=== PATIENT | male | born 1940 | race Hispanic/Latino ===

== ENCOUNTER 2017-02-12 08:43 | Inpatient (IN) | payer MEDICARE ==
[2017-02-12] MEDS ORDERED: Albuterol-Ipratrop 3 mg / 0.5 (3 ml) UD IH STA (09:30)
[2017-02-12] MEDS: Sodium Chloride 0.9% 1,000 ML IV STA ×2 (09:48→12:33)
--- NOTE | 2017-02-12 09:49 | ED PDOC ---
HPI: Trauma/Fall - HPI Time Seen by Provider: 02/12/17 08:53 Chief Complaint (Nursing): Trauma Chief Complaint (Provider): Left Clavicle and Right Hip injury History Per: Patient History/Exam Limitations: no limitations Onset/Duration Of Symptoms: Hrs Additional Complaint(s): Berny Oro, a 77 year old male, with a past medical history of chronic obstructive pulmonary disease is brought in to the ED my EMS after the patient fell out of bed earlier this morning sustaining injury to his left clavicle and right hip. The patient reports that he hit his head but denies loss of consciousness. He states that he was laying on the floor for 5 hours unable to get get up. Patient is now complaining of pain to the right hip and left clavicle. Past Medical History Reviewed: Historical Data, Nursing Documentation, Vital Signs Vital Signs: Last Vital Signs Temp 98.0 F 02/12/17 08:46 Pulse 130 H 02/12/17 08:46 Resp 22 02/12/17 08:46 BP 140/64 02/12/17 08:46 Pulse Ox 92 L 02/12/17 12:52 - Medical History PMH: COPD, Depression, HTN, Pneumonia, Seizures (temporal lobe seizure) Denies: Chronic Kidney Disease - Surgical History Surgical History: Cholecystectomy - Family History Family History: States: Unknown Family Hx - Home Medications Home Medications: Ambulatory Orders Medication Instructions Recorded Polyethylene Glycol 3350 [Miralax] 17 gm PO DAILY #10 dose 05/06/14 - Allergies Allergies/Adverse Reactions: Allergies Allergy/AdvReac Type Severity Reaction Status Date / Time No Known Allergies Allergy Verified 02/22/14 12:14 Review of Systems ROS Statement: Except As Marked, All Systems Reviewed And Found Negative Musculoskeletal: Positive for: Other (right hip pain). Negative for: Shoulder Pain (left clavicle pain) Physical Exam - Reviewed Nursing Documentation Reviewed: Yes Vital Signs Reviewed: Yes - Physical Exam Appears: Positive for: Non-toxic, No Acute Distress Head Exam: Positive for: ATRAUMATIC, NORMAL INSPECTION, NORMOCEPHALIC Skin: Positive for: Normal Color, Warm, Dry. Negative for: Rash Eye Exam: Positive for: Normal appearance, EOMI, PERRL. Negative for: Nystagmus ENT: Negative for: Normal ENT Inspection (mucous membranes are dry) Neck: Positive for: Normal, Painless ROM, Supple Cardiovascular/Chest: Positive for: Regular Rate, Rhythm, Chest Non Tender. Negative for: Tachycardia Respiratory: Positive for: Rhonchi (ronchi bilaterally). Negative for: Wheezing , Respiratory Distress Gastrointestinal/Abdominal: Positive for: Normal Exam, Bowel Sounds, Soft. Negative for: Tenderness, Guarding Back: Positive for: Normal Inspection. Negative for: L CVA Tenderness, R CVA Tenderness Extremity: Positive for: Normal ROM (pain on movement ), Tenderness (right hip tenderness ), Deformity (no deformity to right hip), Other (clavicle left side with swelling and ecchymosis; right leg contracted.) Neurologic/Psych: Positive for: Alert (x3), Oriented (x3), Gait - Laboratory Results Result Diagrams: 02/12/17 10:45 02/12/17 10:45 - ECG O2 Sat by Pulse Oximetry: 92 (RA) Pulse Ox Interpretation: Normal Medical Decision Making Medical Decision Makin Initial Impression 77 y/o male presenting with fall type injury Initial Plan: * VBG * CT Cervical Spine * CT Head w/o Contrast * EKG * CMP * CPK * CBC * Chest x-ray * Albuterol 3ml INH * NS 1000mls IV 250mls/hr * Blood Culture * Urine Culture * RAD Left Clavicle * RAD Right Hip * Urinalysis * Reevaluation 1039 CT HEAD WITHOUT CONTRAST. HISTORY: r/o bleed FINDINGS: HEMORRHAGE: No intracranial hemorrhage. BRAIN: Diffuse atrophy with prominence of the ventricles and sulci noted. No mass effect or edema. Dense intracranial atherosclerosis. Scattered periventricular and subcortical white matter hypodensities, which are nonspecific, but often seen with chronic microvascular ischemic disease. Please note that MRI with diffusion imaging is more sensitive in the detection of acute ischemic event. VENTRICLES: No hydrocephalus. CALVARIUM: Unremarkable. PARANASAL SINUSES: Unremarkable as visualized. No significant inflammatory changes. MASTOID AIR CELLS: Unremarkable as visualized. No inflammatory changes. OTHER FINDINGS: None. IMPRESSION: Generalized atrophy. Moderate nonspecific white matter changes. 1058 CT cervical spine without IV contrast Indication: Trauma Technique: Axial computed tomography images were obtained of the cervical spine without the use of intravenous contrast. Coronal and sagittal reformatted images were created and reviewed. This CT exam was performed using 1 or more of the falling dose reduction techniques: Automated exposure control, adjustment of the MAA and/or kV according to patient size, and/or use of iterative reconstruction technique. Findings: Osseous demineralization limits evaluation for acute fracture lines. Degenerative changes including intervertebral disc space narrowing and small osteophyte formation. There is no evidence of acute fracture or subluxation of the cervical spine. The prevertebral soft tissues and spinolaminar lines appear intact. The lateral masses are preserved. The dens tip is intact. There is proper alignment of the lateral masses of C1 with the C2 vertebral body. Carotid artery calcifications. Acute displaced comminuted left clavicle fracture deformity with associated soft tissue stranding, hematoma, and soft tissue edema surrounding the fracture and extending into the visualized axilla and neck soft tissues. Soft tissue stranding and hematoma also noted extending into the upper mediastinum. Included portions of the thyroid gland appear unremarkable. Included portions of lung apices demonstrate extensive emphysematous changes. Impression: Acute displaced comminuted left clavicle fracture deformity (proximal clavicle) with associated soft tissue stranding, hematoma, and soft tissue edema surrounding the fracture and extending into the visualized axilla and neck soft tissues. Soft tissue stranding and hematoma also noted extending into the upper mediastinum. No evidence of acute fracture or subluxation of the cervical spine. Osseous demineralization. Degenerative changes. Extensive emphysematous changes. 1100 EKG performed: * Sinus tachycardia - 125 bpm * No ST changes 1109 Clavicle Xray IMPRESSION: No acute findings related to/accounting for the clinical presentation. 11:11 Hip/Pelvis Xray HISTORY: trauma COMPARISON: None TECHNIQUE: Standard protocol for this study/examination. FINDINGS: There are no osseous abnormalities to suggest fracture. The pelvic ring is intact. Preserved femoral-acetabular relationship. Negative study for protrusio , subluxation or dislocation. Degenerative changes: Mild and symmetrical. Incidental finding(s): Aorto bi-iliac stent graft. Air-filled colon and small bowel likely ileus. IMPRESSION: No acute findings related to/accounting for the clinical presentation. Scribe Attestation Documented by Tita Arrieta acting as a scribe for Paul Patricia MD. Provider Attestation All medical record entries made by the Scribe were at my direction and personally dictated by me. I have reviewed the chart and agree that the record accurately reflects my personal performance of the history, physical exam, medical decision making, and the department course for this patient. I have also personally directed, reviewed, and agree with the discharge instructions and disposition. Disposition - Clinical Impression Clinical Impression: COPD exacerbation, Bronchitis, SIRS (systemic inflammatory response syndrome), Clavicle fracture - Patient ED Disposition Is Patient to be Admitted: Yes - Disposition Disposition Time: 12:58 Condition: FAIR Forms: [employer] ([place]ovan) - Pt Status Changed To: Hospital Disposition Of: Inpatient - Admit Certification Admit to Inpatient:: After my assessment, the patient will require hospitalization for at least two midnights. This is because of the severity of symptoms shown, intensity of services needed, and/or the medical risk in this patient being treated as an outpatient. - POA Present On Arrival: None
--- NOTE | 2017-02-12 10:41 | CT ---
PROCEDURE: CT HEAD WITHOUT CONTRAST. HISTORY: r/o bleed COMPARISON: None available. TECHNIQUE: Axial computed tomography images were obtained through the head/brain without intravenous contrast. Radiation dose: Total exam DLP = 1145.60 mGy-cm. This CT exam was performed using one or more of the following dose reduction techniques: Automated exposure control, adjustment of the mA and/or kV according to patient size, and/or use of iterative reconstruction technique. FINDINGS: HEMORRHAGE: No intracranial hemorrhage. BRAIN: Diffuse atrophy with prominence of the ventricles and sulci noted. No mass effect or edema. Dense intracranial atherosclerosis. Scattered periventricular and subcortical white matter hypodensities, which are nonspecific, but often seen with chronic microvascular ischemic disease. Please note that MRI with diffusion imaging is more sensitive in the detection of acute ischemic event. VENTRICLES: No hydrocephalus. CALVARIUM: Unremarkable. PARANASAL SINUSES: Unremarkable as visualized. No significant inflammatory changes. MASTOID AIR CELLS: Unremarkable as visualized. No inflammatory changes. OTHER FINDINGS: None. IMPRESSION: Generalized atrophy. Moderate nonspecific white matter changes.
[2017-02-12 10:47] LABS: VENOUS BLOOD GAS BASE EXCESS 1.9 mmol/L (0.0-2.0); VENOUS BLOOD GAS PCO2 52 mmHg (40-60); VENOUS BLOOD PH 7.35 (7.32-7.43)
[2017-02-12] MEDS ORDERED: Sodium Chloride 0.9% 1,000 ML IV STA (10:49)
--- NOTE | 2017-02-12 10:59 | CT ---
CT cervical spine without IV contrast Indication: Trauma Comparison: None available Technique: Axial computed tomography images were obtained of the cervical spine without the use of intravenous contrast. Coronal and sagittal reformatted images were created and reviewed. This CT exam was performed using 1 or more of the falling dose reduction techniques: Automated exposure control, adjustment of the MAA and/or kV according to patient size, and/or use of iterative reconstruction technique. Radiation dose: Total exam DLP = 604.40 MGy-cm. Findings: Osseous demineralization limits evaluation for acute fracture lines. Degenerative changes including intervertebral disc space narrowing and small osteophyte formation. There is no evidence of acute fracture or subluxation of the cervical spine. The prevertebral soft tissues and spinolaminar lines appear intact. The lateral masses are preserved. The dens tip is intact. There is proper alignment of the lateral masses of C1 with the C2 vertebral body. Carotid artery calcifications. Acute displaced comminuted left clavicle fracture deformity with associated soft tissue stranding, hematoma, and soft tissue edema surrounding the fracture and extending into the visualized axilla and neck soft tissues. Soft tissue stranding and hematoma also noted extending into the upper mediastinum. Included portions of the thyroid gland appear unremarkable. Included portions of lung apices demonstrate extensive emphysematous changes. Impression: Acute displaced comminuted left clavicle fracture deformity (proximal clavicle) with associated soft tissue stranding, hematoma, and soft tissue edema surrounding the fracture and extending into the visualized axilla and neck soft tissues. Soft tissue stranding and hematoma also noted extending into the upper mediastinum. No evidence of acute fracture or subluxation of the cervical spine. Osseous demineralization. Degenerative changes. Extensive emphysematous changes.
[2017-02-12 11:03] LABS: ALB/GLOB RATIO 0.8 (1.0-2.1); ALKALINE PHOSPHATASE 160 U/L (38-126); ALT/SGPT 18 U/L (21-72); AST/SGOT 53 U/L (17-59); BILIRUBIN,TOTAL 2.2 mg/dl (0.2-1.3); BLOOD UREA NITROGEN 13 mg/dl (9-20); CARBON DIOXIDE 23 mmol/L (22-30); CHLORIDE 105 mmol/L (98-107); GFR AFRICAN-AMERICAN > 60; GLUCOSE,RANDOM 133 mg/dL (75-110); SODIUM 143 mmol/l (132-148); TOTAL PROTEIN 9.1 G/DL (6.3-8.2)
[2017-02-12 11:06] LABS: BASO # 0.2 K/uL (0.0-0.2); BASO % 0.7 % (0.0-2.0); HEMATOCRIT 44.9 % (35.0-51.0); LYMPH # 0.4 K/uL (1.0-4.3); LYMPH % 1.8 % (20.0-40.0); MEAN CELL VOLUME 94.9 fl (80.0-94.0); MEAN CORPUSCULAR HEMOGLOBIN 30.8 pg (27.0-31.0); MEAN CORPUSCULAR HGB CONC 32.5 g/dL (33.0-37.0); MEAN PLATELET VOLUME 8.2 fl (7.2-11.7); MONO # 1.4 K/uL (0.0-0.8); MONO % 6.3 % (0.0-10.0); NEUT # 19.8 K/uL (1.8-7.0); NEUT % 91.2 % (50.0-75.0); NRBC % 0.1 % (0.0-0.0); PLATELET COUNT 147 K/uL (130-400); RED CELL DISTRIBUTION WIDTH 15.2 % (11.5-14.5); WHITE BLOOD COUNT 21.8 K/uL (4.8-10.8)
[2017-02-12 11:07] LABS: POTASSIUM 5.7 MMOL/L (3.6-5.0)
--- NOTE | 2017-02-12 11:11 | RAD ---
HISTORY: cough COMPARISON: 02/22/2014 FINDINGS: LUNGS: No active pulmonary disease. PLEURA: No significant pleural effusion identified, no pneumothorax apparent. CARDIOVASCULAR: No radiographic findings to suggest acute or significant cardiovascular disease. OSSEOUS STRUCTURES: No significant abnormalities. VISUALIZED UPPER ABDOMEN: Normal. OTHER FINDINGS: None. IMPRESSION: No active disease. No significant interval change compared to the prior examination(s).
--- NOTE | 2017-02-12 11:11 | RAD ---
PROCEDURE: Radiographs of the left clavicle. HISTORY: Trauma, left shoulder injury COMPARISON: None. FINDINGS: LEFT CLAVICLE: No fracture or focal lesion. JOINTS: Left acromioclavicular and glenohumeral joints are grossly unremarkable. SOFT TISSUES: Grossly unremarkable. OTHER FINDINGS: None. IMPRESSION: No acute findings related to/accounting for the clinical presentation. Please note: No preliminary report/ innterpretation of this examination provided by emergency department personnel.
--- NOTE | 2017-02-12 11:12 | RAD ---
PROCEDURE: Right hip/ pelvis HISTORY: trauma COMPARISON: None TECHNIQUE: Standard protocol for this study/examination. FINDINGS: There are no osseous abnormalities to suggest fracture. The pelvic ring is intact. Preserved femoral-acetabular relationship. Negative study for protrusio, subluxation or dislocation. Degenerative changes: Mild and symmetrical. Incidental finding(s): Aorto bi-iliac stent graft. Air-filled colon and small bowel likely ileus. IMPRESSION: No acute findings related to/accounting for the clinical presentation. Please note: No preliminary report/ innterpretation of this examination provided by emergency department personnel.
[2017-02-12] MEDS ORDERED: Piperacillin/Tazobact 3.375 GM in Sodium Chloride 0.9% 100 ML IVPB STA (11:52)
[2017-02-12] MEDS ORDERED: Vancomycin 1 g Inj ONE (12:28)
[2017-02-12 12:35] LABS: RBC URINE 1 /hpf (0-3); URINE BILIRUBIN NEGATIVE (NEGATIVE); URINE BLOOD NEGATIVE (NEGATIVE); URINE COLOR AMBER (YELLOW); URINE GLUCOSE (UA) NEG (Normal); URINE KETONE NEGATIVE (NEGATIVE); URINE LEUKOCYTE ESTERASE NEG Leu/uL (Negative); URINE PROTEIN 100 mg/dL (NEGATIVE); WBC URINE < 1 /hpf (0-5)
[2017-02-12 13:23] LABS: VENOUS BLOOD GAS BASE EXCESS 0.4 mmol/L (0.0-2.0); VENOUS BLOOD GAS PCO2 50 mmHg (40-60); VENOUS BLOOD PH 7.34 (7.32-7.43)
[2017-02-12 13:41] LABS: ALB/GLOB RATIO 0.7 (1.0-2.1); ALKALINE PHOSPHATASE 121 U/L (38-126); ALT/SGPT 25 U/L (21-72); AST/SGOT 28 U/L (17-59); BILIRUBIN,TOTAL 1.4 mg/dl (0.2-1.3); BLOOD UREA NITROGEN 13 mg/dl (9-20); CALCIUM 8.3 mg/dL (8.4-10.2); CARBON DIOXIDE 23 mmol/L (22-30); CHLORIDE 109 mmol/L (98-107); GFR AFRICAN-AMERICAN > 60; GLUCOSE,RANDOM 125 mg/dL (75-110); POTASSIUM 4.3 MMOL/L (3.6-5.0); SODIUM 144 mmol/l (132-148); TOTAL PROTEIN 7.5 G/DL (6.3-8.2)
[2017-02-12 14:20] LABS: NEUTROPHIL 82 % (42-75); TOTAL CELLS COUNTED 100
[2017-02-12] MEDS ORDERED: Piperacillin/Tazobact 3.375 gm Inj IVPB ONE (14:46)
[2017-02-12] MEDS: Sodium Chloride 0.9% 1,000 ML IV SCH (18:27)
[2017-02-12] MEDS ORDERED: Albuterol-Ipratrop 3 mg / 0.5 (3 ml) UD INH PRN (21:31)
[2017-02-13] MEDS ORDERED: Influenza Vaccine 18yr & older 0.5 ML/45 MCG SYR IM ONE (05:11)
[2017-02-13] MEDS: Sodium Chloride 0.9% 1,000 ML IV SCH ×2 (06:16→17:22)
[2017-02-13 07:37] LABS: ALB/GLOB RATIO 0.7 (1.0-2.1); ALKALINE PHOSPHATASE 103 U/L (38-126); ALT/SGPT 27 U/L (21-72); AST/SGOT 28 U/L (17-59); BILIRUBIN,TOTAL 1.5 mg/dl (0.2-1.3); BLOOD UREA NITROGEN 16 mg/dl (9-20); CALCIUM 7.9 mg/dL (8.4-10.2); CARBON DIOXIDE 25 mmol/L (22-30); CHLORIDE 111 mmol/L (98-107); GFR AFRICAN-AMERICAN > 60; GLUCOSE,RANDOM 96 mg/dL (75-110); POTASSIUM 4.1 MMOL/L (3.6-5.0); SODIUM 144 mmol/l (132-148); TOTAL PROTEIN 6.8 G/DL (6.3-8.2)
[2017-02-13 08:35] LABS: HEMATOCRIT 36.7 % (35.0-51.0); MEAN CELL VOLUME 95.5 fl (80.0-94.0); MEAN CORPUSCULAR HEMOGLOBIN 31.3 pg (27.0-31.0); MEAN CORPUSCULAR HGB CONC 32.8 g/dL (33.0-37.0); RED CELL DISTRIBUTION WIDTH 14.7 % (11.5-14.5)
[2017-02-13 08:39] LABS: WHITE BLOOD COUNT 9.2 K/uL (4.8-10.8)
[2017-02-13] MEDS: Enoxaparin 40 mg Syringe SC SCH (09:14)
--- NOTE | 2017-02-13 11:00 | CP.PCM.HP ---
Past Patient History - Past Medical History & Family History Past Medical History?: Yes - Past Social History Smoking Status: Light Smoker < 10 Cigarettes Daily - CARDIAC Hx Hypertension: Yes - PULMONARY Hx Respiratory Disorders: Yes Hx Chronic Obstructive Pulmonary Disease (COPD): Yes Hx Pneumonia: Yes - NEUROLOGICAL Hx Neurological Disorder: Yes Hx Seizures: Yes - HEENT Hx HEENT Problems: No - RENAL Hx Chronic Kidney Disease: No - ENDOCRINE/METABOLIC Hx Endocrine Disorders: No - HEMATOLOGICAL/ONCOLOGICAL Hx Blood Disorders: No Hx AIDS: No Hx Human Immunodeficiency Virus (HIV): No - INTEGUMENTARY Hx Dermatological Problems: Yes Other/Comment: plaque scaly violacious lesion 6 x 4 cm over the left upper quadrant present since 7 yrs ago and progressively expanding - MUSCULOSKELETAL/RHEUMATOLOGICAL Hx Musculoskeletal Disorders: Yes Hx Falls: Yes - GASTROINTESTINAL Hx Gastrointestinal Disorders: No Other/Comment: increasing abdominal girth the past few yrs - GENITOURINARY/GYNECOLOGICAL Hx Genitourinary Disorders: No - PSYCHIATRIC Hx Depression: Yes Hx Substance Use: No - SURGICAL HISTORY Hx Cholecystectomy: Yes - ANESTHESIA Hx Anesthesia: Yes Hx Anesthesia Reactions: No Hx Malignant Hyperthermia: No Has any member of the family had a problem w/ anesthesia?: No Meds Allergies/Adverse Reactions: Allergies Allergy/AdvReac Type Severity Reaction Status Date / Time No Known Allergies Allergy Verified 02/22/14 12:14 Results - Vital Signs Recent Vital Signs: Last Vital Signs Temp 98.4 F 02/13/17 08:00 Pulse 65 02/13/17 08:00 Resp 18 02/13/17 08:00 BP 108/66 02/13/17 08:00 Pulse Ox 95 02/13/17 08:00 - Labs Result Diagrams: 02/13/17 08:00 02/13/17 06:00 Labs: Laboratory Results - last 24 hr 02/12/17 02/12/17 02/12/17 09:44 10:45 10:45 WBC 21.8 H RBC 4.73 Hgb 14.6 Hct 44.9 MCV 94.9 H MCH 30.8 MCHC 32.5 L RDW 15.2 H Plt Count 147 MPV 8.2 Neut % (Auto) 91.2 H Lymph % (Auto) 1.8 L [place] % (Auto) 6.3 Eos % (Auto) 0.0 Baso % (Auto) 0.7 Neut # 19.8 H Lymph # 0.4 L [place] # 1.4 H Eos # 0.0 Baso # 0.2 Neutrophils % (Manual) 82 H Band Neutrophils % 5 H Lymphocytes % (Manual) 3 L Monocytes % (Manual) 10 Toxic Granulation Present Platelet Estimate Normal Poikilocytosis (manual Slight Anisocytosis (manual) Moderate Tear Drop Cells Slight pO2 VBG pH VBG pCO2 VBG HCO3 VBG Total CO2 VBG O2 Sat (Calc) VBG Base Excess VBG Potassium Glucose Lactate FiO2 Sodium 143 Potassium 5.7 H Chloride 105 Carbon Dioxide 23 Anion Gap 21 H BUN 13 Creatinine 0.9 Est GFR ( Amer) > 60 Est GFR (Non-Af Amer) > 60 Random Glucose 133 H Calcium 9.0 Total Bilirubin 2.2 H AST 53 ALT 18 L D Alkaline Phosphatase 160 H Total Creatine Kinase 109 Troponin I Total Protein 9.1 H Albumin 4.0 Globulin 5.1 H Albumin/Globulin Ratio 0.8 L Venous Blood Potassium Urine Color [place] Urine Clarity Slighty-cloudy Urine pH 5.0 Ur Specific [place] 1.028 Urine Protein 100 Urine Glucose (UA) Neg Urine Ketones Negative Urine Blood Negative Urine Nitrate Negative Urine Bilirubin Negative Urine Urobilinogen 4.0 Ur Leukocyte Esterase Neg Urine RBC (Auto) 1 Urine Microscopic WBC < 1 Ur Squamous Epith Cells 1 Hyaline Casts 0-2 02/12/17 02/12/17 02/13/17 13:16 13:30 05:15 WBC RBC Hgb Hct MCV MCH MCHC RDW Plt Count MPV Neut % (Auto) Lymph % (Auto) [place] % (Auto) Eos % (Auto) Baso % (Auto) Neut # Lymph # [place] # Eos # Baso # Neutrophils % (Manual) Band Neutrophils % Lymphocytes % (Manual) Monocytes % (Manual) Toxic Granulation Platelet Estimate Poikilocytosis (manual Anisocytosis (manual) Tear Drop Cells pO2 39 VBG pH 7.34 VBG pCO2 50 VBG HCO3 24.5 VBG Total CO2 28.5 H VBG O2 Sat (Calc) 79.4 H VBG Base Excess 0.4 VBG Potassium 4.4 Glucose 139 H Lactate 2.7 H FiO2 21.0 Sodium 144 138.0 Potassium 4.3 Chloride 109 H 108.0 H Carbon Dioxide 23 Anion Gap 16 BUN 13 Creatinine 0.9 Est GFR ( Amer) > 60 Est GFR (Non-Af Amer) > 60 Random Glucose 125 H Calcium 8.3 L Total Bilirubin 1.4 H AST 28 ALT 25 Alkaline Phosphatase 121 Total Creatine Kinase Troponin I 0.0170 Total Protein 7.5 Albumin 3.1 L D Globulin 4.3 H Albumin/Globulin Ratio 0.7 L Venous Blood Potassium 4.4 Urine Color Urine Clarity Urine pH Ur Specific [place] Urine Protein Urine Glucose (UA) Urine Ketones Urine Blood Urine Nitrate Urine Bilirubin Urine Urobilinogen Ur Leukocyte Esterase Urine RBC (Auto) Urine Microscopic WBC Ur Squamous Epith Cells Hyaline Casts 02/13/17 02/13/17 06:00 08:00 WBC 9.2 D RBC 3.84 L Hgb 12.0 D Hct 36.7 MCV 95.5 H MCH 31.3 H MCHC 32.8 L RDW 14.7 H Plt Count 78 L D MPV Neut % (Auto) Lymph % (Auto) [place] % (Auto) Eos % (Auto) Baso % (Auto) Neut # Lymph # [place] # Eos # Baso # Neutrophils % (Manual) Band Neutrophils % Lymphocytes % (Manual) Monocytes % (Manual) Toxic Granulation Platelet Estimate Poikilocytosis (manual Anisocytosis (manual) Tear Drop Cells pO2 VBG pH VBG pCO2 VBG HCO3 VBG Total CO2 VBG O2 Sat (Calc) VBG Base Excess VBG Potassium Glucose Lactate FiO2 Sodium 144 Potassium 4.1 Chloride 111 H Carbon Dioxide 25 Anion Gap 12 BUN 16 Creatinine 0.8 Est GFR ( Amer) > 60 Est GFR (Non-Af Amer) > 60 Random Glucose 96 Calcium 7.9 L Total Bilirubin 1.5 H AST 28 ALT 27 Alkaline Phosphatase 103 Total Creatine Kinase Troponin I Total Protein 6.8 Albumin 2.7 L Globulin 4.1 H Albumin/Globulin Ratio 0.7 L Venous Blood Potassium Urine Color Urine Clarity Urine pH Ur Specific [place] Urine Protein Urine Glucose (UA) Urine Ketones Urine Blood Urine Nitrate Urine Bilirubin Urine Urobilinogen Ur Leukocyte Esterase Urine RBC (Auto) Urine Microscopic WBC Ur Squamous Epith Cells Hyaline Casts
--- NOTE | 2017-02-13 12:20 | CP.PCM.CON ---
History of Present Illness - History of Present Illness History of Present Illness: ID 77 yo male CC: L shoilder pain and rstricted ROM HPI 77 yo male presents after fall admoitted R/O L clavicle fx multiple trauma Past Patient History - Past Medical History & Family History Past Medical History?: Yes - Past Social History Smoking Status: Light Smoker < 10 Cigarettes Daily - CARDIAC Hx Hypertension: Yes - PULMONARY Hx Respiratory Disorders: Yes Hx Chronic Obstructive Pulmonary Disease (COPD): Yes Hx Pneumonia: Yes - NEUROLOGICAL Hx Neurological Disorder: Yes Hx Seizures: Yes - HEENT Hx HEENT Problems: No - RENAL Hx Chronic Kidney Disease: No - ENDOCRINE/METABOLIC Hx Endocrine Disorders: No - HEMATOLOGICAL/ONCOLOGICAL Hx Blood Disorders: No Hx AIDS: No Hx Human Immunodeficiency Virus (HIV): No - INTEGUMENTARY Hx Dermatological Problems: Yes Other/Comment: plaque scaly violacious lesion 6 x 4 cm over the left upper quadrant present since 7 yrs ago and progressively expanding - MUSCULOSKELETAL/RHEUMATOLOGICAL Hx Musculoskeletal Disorders: Yes Hx Falls: Yes - GASTROINTESTINAL Hx Gastrointestinal Disorders: No Other/Comment: increasing abdominal girth the past few yrs - GENITOURINARY/GYNECOLOGICAL Hx Genitourinary Disorders: No - PSYCHIATRIC Hx Depression: Yes Hx Substance Use: No - SURGICAL HISTORY Hx Cholecystectomy: Yes - ANESTHESIA Hx Anesthesia: Yes Hx Anesthesia Reactions: No Hx Malignant Hyperthermia: No Has any member of the family had a problem w/ anesthesia?: No Meds Allergies/Adverse Reactions: Allergies Allergy/AdvReac Type Severity Reaction Status Date / Time No Known Allergies Allergy Verified 02/22/14 12:14 - Medications Medications: Current Medications Acetaminophen (Tylenol 325mg Tab) 650 mg PO Q6 PRN PRN Reason: Pain, Mild (1-3) Albuterol/Ipratropium (Duoneb 3 Mg/0.5 Mg (3 Ml) Ud) 3 ml INH RQ6 PRN PRN Reason: Shortness of Breath Enoxaparin Sodium (Lovenox) 40 mg SC DAILY ERIKA PRN Reason: Protocol Last Admin: 02/13/17 09:14 Dose: 40 mg Sodium Chloride (Sodium Chloride 0.9%) 1,000 mls @ 100 mls/hr IV .Q10H ERIKA Stop: 02/13/17 17:58 Last Admin: 02/13/17 06:16 Dose: 100 mls/hr Ketorolac Tromethamine (Toradol) 15 mg IVP Q6 PRN PRN Reason: Pain, moderate (4-7) Morphine Sulfate (Morphine) 1 mg IVP Q4 PRN PRN Reason: Pain, severe (8-10) Last Admin: 02/13/17 11:09 Dose: 1 mg Physical Exam - Additional Findings Additional findings: Musculoskekltal stance.gait- defrred ROM L shoulder L restricted no resl tenderness at distal clavicle Results - Vital Signs Recent Vital Signs: Last Vital Signs Temp 98.4 F 02/13/17 08:00 Pulse 76 02/13/17 09:00 Resp 18 02/13/17 08:00 BP 108/66 02/13/17 08:00 Pulse Ox 95 02/13/17 08:00 - Labs Result Diagrams: 02/13/17 08:00 02/13/17 06:00 Labs: Laboratory Results - last 24 hr 02/12/17 02/12/17 02/12/17 09:44 10:45 13:16 WBC RBC Hgb Hct MCV MCH MCHC RDW Plt Count Neutrophils % (Manual) 82 H Band Neutrophils % 5 H Lymphocytes % (Manual) 3 L Monocytes % (Manual) 10 Toxic Granulation Present Platelet Estimate Normal Poikilocytosis (manual Slight Anisocytosis (manual) Moderate Tear Drop Cells Slight pO2 VBG pH VBG pCO2 VBG HCO3 VBG Total CO2 VBG O2 Sat (Calc) VBG Base Excess VBG Potassium Glucose Lactate FiO2 Sodium 144 Potassium 4.3 Chloride 109 H Carbon Dioxide 23 Anion Gap 16 BUN 13 Creatinine 0.9 Est GFR ( Amer) > 60 Est GFR (Non-Af Amer) > 60 Random Glucose 125 H Calcium 8.3 L Total Bilirubin 1.4 H AST 28 ALT 25 Alkaline Phosphatase 121 Troponin I Total Protein 7.5 Albumin 3.1 L D Globulin 4.3 H Albumin/Globulin Ratio 0.7 L Venous Blood Potassium Urine Color [place] Urine Clarity Slighty-cloudy Urine pH 5.0 Ur Specific [place] 1.028 Urine Protein 100 Urine Glucose (UA) Neg Urine Ketones Negative Urine Blood Negative Urine Nitrate Negative Urine Bilirubin Negative Urine Urobilinogen 4.0 Ur Leukocyte Esterase Neg Urine RBC (Auto) 1 Urine Microscopic WBC < 1 Ur Squamous Epith Cells 1 Hyaline Casts 0-2 02/12/17 02/13/17 02/13/17 13:30 05:15 06:00 WBC RBC Hgb Hct MCV MCH MCHC RDW Plt Count Neutrophils % (Manual) Band Neutrophils % Lymphocytes % (Manual) Monocytes % (Manual) Toxic Granulation Platelet Estimate Poikilocytosis (manual Anisocytosis (manual) Tear Drop Cells pO2 39 VBG pH 7.34 VBG pCO2 50 VBG HCO3 24.5 VBG Total CO2 28.5 H VBG O2 Sat (Calc) 79.4 H VBG Base Excess 0.4 VBG Potassium 4.4 Glucose 139 H Lactate 2.7 H FiO2 21.0 Sodium 138.0 144 Potassium 4.1 Chloride 108.0 H 111 H Carbon Dioxide 25 Anion Gap 12 BUN 16 Creatinine 0.8 Est GFR ( Amer) > 60 Est GFR (Non-Af Amer) > 60 Random Glucose 96 Calcium 7.9 L Total Bilirubin 1.5 H AST 28 ALT 27 Alkaline Phosphatase 103 Troponin I 0.0170 Total Protein 6.8 Albumin 2.7 L Globulin 4.1 H Albumin/Globulin Ratio 0.7 L Venous Blood Potassium 4.4 Urine Color Urine Clarity Urine pH Ur Specific [place] Urine Protein Urine Glucose (UA) Urine Ketones Urine Blood Urine Nitrate Urine Bilirubin Urine Urobilinogen Ur Leukocyte Esterase Urine RBC (Auto) Urine Microscopic WBC Ur Squamous Epith Cells Hyaline Casts 02/13/17 08:00 WBC 9.2 D RBC 3.84 L Hgb 12.0 D Hct 36.7 MCV 95.5 H MCH 31.3 H MCHC 32.8 L RDW 14.7 H Plt Count 78 L D Neutrophils % (Manual) Band Neutrophils % Lymphocytes % (Manual) Monocytes % (Manual) Toxic Granulation Platelet Estimate Poikilocytosis (manual Anisocytosis (manual) Tear Drop Cells pO2 VBG pH VBG pCO2 VBG HCO3 VBG Total CO2 VBG O2 Sat (Calc) VBG Base Excess VBG Potassium Glucose Lactate FiO2 Sodium Potassium Chloride Carbon Dioxide Anion Gap BUN Creatinine Est GFR ( Amer) Est GFR (Non-Af Amer) Random Glucose Calcium Total Bilirubin AST ALT Alkaline Phosphatase Troponin I Total Protein Albumin Globulin Albumin/Globulin Ratio Venous Blood Potassium Urine Color Urine Clarity Urine pH Ur Specific [place] Urine Protein Urine Glucose (UA) Urine Ketones Urine Blood Urine Nitrate Urine Bilirubin Urine Urobilinogen Ur Leukocyte Esterase Urine RBC (Auto) Urine Microscopic WBC Ur Squamous Epith Cells Hyaline Casts - Impressions Impression: Xray- l shoiulder reveals DJD njo evidence for clavicle fx Assessment & Plan - Assessment and Plan (Free Text) Assessment: A- contusion L shoiulder multiple trauma P sling recommend MRI L shoulder
--- NOTE | 2017-02-13 19:56 | CARD ---
APPROVED REPORT EKG Measurement Heart [id number] IL [id number] [id number] <Conclusion> Sinus tachycardia Otherwise normal ECG
--- NOTE | 2017-02-13 22:37 | CP.PCM.HP ---
History of Present Illness - History of Present Illness History of Present Illness: a 77 year old male, with a past medical history of chronic obstructive pulmonary disease is brought in to the ED my EMS after the patient fell out of bed earlier this morning sustaining injury to his left clavicle and right hip. The patient reports that he hit his head but denies loss of consciousness. He states that he was laying on the floor for 5 hours unable to get get up. Patient is now complaining of pain to the right hip and left clavicle. Past Patient History - Past Medical History & Family History Past Medical History?: Yes - Past Social History Smoking Status: Light Smoker < 10 Cigarettes Daily - CARDIAC Hx Hypertension: Yes - PULMONARY Hx Respiratory Disorders: Yes Hx Chronic Obstructive Pulmonary Disease (COPD): Yes Hx Pneumonia: Yes - NEUROLOGICAL Hx Neurological Disorder: Yes Hx Seizures: Yes - HEENT Hx HEENT Problems: No - RENAL Hx Chronic Kidney Disease: No - ENDOCRINE/METABOLIC Hx Endocrine Disorders: No - HEMATOLOGICAL/ONCOLOGICAL Hx Blood Disorders: No Hx AIDS: No Hx Human Immunodeficiency Virus (HIV): No - INTEGUMENTARY Hx Dermatological Problems: Yes Other/Comment: plaque scaly violacious lesion 6 x 4 cm over the left upper quadrant present since 7 yrs ago and progressively expanding - MUSCULOSKELETAL/RHEUMATOLOGICAL Hx Musculoskeletal Disorders: Yes Hx Falls: Yes - GASTROINTESTINAL Hx Gastrointestinal Disorders: No Other/Comment: increasing abdominal girth the past few yrs - GENITOURINARY/GYNECOLOGICAL Hx Genitourinary Disorders: No - PSYCHIATRIC Hx Depression: Yes Hx Substance Use: No - SURGICAL HISTORY Hx Cholecystectomy: Yes - ANESTHESIA Hx Anesthesia: Yes Hx Anesthesia Reactions: No Hx Malignant Hyperthermia: No Has any member of the family had a problem w/ anesthesia?: No Meds Allergies/Adverse Reactions: Allergies Allergy/AdvReac Type Severity Reaction Status Date / Time No Known Allergies Allergy Verified 02/22/14 12:14 Results - Vital Signs Recent Vital Signs: Last Vital Signs Temp 97.7 F 02/13/17 19:00 Pulse 80 02/13/17 19:00 Resp 18 02/13/17 19:00 BP 147/78 02/13/17 19:00 Pulse Ox 95 02/13/17 19:00 - Labs Result Diagrams: 02/13/17 08:00 02/13/17 06:00 Labs: Laboratory Results - last 24 hr 02/13/17 02/13/17 02/13/17 05:15 06:00 08:00 WBC 9.2 D RBC 3.84 L Hgb 12.0 D Hct 36.7 MCV 95.5 H MCH 31.3 H MCHC 32.8 L RDW 14.7 H Plt Count 78 L D Sodium 144 Potassium 4.1 Chloride 111 H Carbon Dioxide 25 Anion Gap 12 BUN 16 Creatinine 0.8 Est GFR ( Amer) > 60 Est GFR (Non-Af Amer) > 60 Random Glucose 96 Calcium 7.9 L Total Bilirubin 1.5 H AST 28 ALT 27 Alkaline Phosphatase 103 Troponin I 0.0170 Total Protein 6.8 Albumin 2.7 L Globulin 4.1 H Albumin/Globulin Ratio 0.7 L 02/13/17 20:00 WBC RBC Hgb Hct MCV MCH MCHC RDW Plt Count Sodium Potassium Chloride Carbon Dioxide Anion Gap BUN Creatinine Est GFR ( Amer) Est GFR (Non-Af Amer) Random Glucose Calcium Total Bilirubin AST ALT Alkaline Phosphatase Troponin I < 0.0120 Total Protein Albumin Globulin Albumin/Globulin Ratio
--- NOTE | 2017-02-14 08:15 | CP.PCM.PN ---
Subjective - Date & Time of Evaluation Date of Evaluation: 02/14/17 Time of Evaluation: 08:00 - Subjective Subjective: Patient complains of pain at medial clavicle. Also complains of pain in his right knee. He says his knee gave way when he fell. Denies numbness/tingling. Says he does have chronic right knee pain. Objective - Vital Signs/Intake and Output Vital Signs (last 24 hours): Temp Pulse Resp BP Pulse Ox 97.5 F L 77 18 132/73 94 L 02/14/17 04:54 02/14/17 04:54 02/14/17 04:54 02/14/17 04:54 02/14/17 04:54 - Medications Medications: Current Medications Acetaminophen (Tylenol 325mg Tab) 650 mg PO Q6 PRN PRN Reason: Pain, Mild (1-3) Albuterol/Ipratropium (Duoneb 3 Mg/0.5 Mg (3 Ml) Ud) 3 ml INH RQ6 PRN PRN Reason: Shortness of Breath Enoxaparin Sodium (Lovenox) 40 mg SC DAILY ERIKA PRN Reason: Protocol Last Admin: 02/13/17 09:14 Dose: 40 mg Ketorolac Tromethamine (Toradol) 15 mg IVP Q6 PRN PRN Reason: Pain, moderate (4-7) Last Admin: 02/14/17 06:50 Dose: 15 mg Morphine Sulfate (Morphine) 1 mg IVP Q4 PRN PRN Reason: Pain, severe (8-10) Last Admin: 02/13/17 11:09 Dose: 1 mg - Labs Labs: 02/13/17 08:00 02/13/17 06:00 - Constitutional Appears: Well, No Acute Distress - Extremities Exam Additional comments: Left clavicle: noted ecchymosis over medial clavicle. TTP to same. Sling intact. +Radial pulse, sensation intact, no swelling/deformity/discoloration/ tenderness to rest of LUE Right knee: generalized tenderness to knee. TTP to lateral knee, no pain or laxity to varus/valgus stress, negative joanna/ant drawer. Complains of pain with any attempts to move knee. Sensation intact, skin intact, no erythema, no obvious joint effusion +ROM ankle/toes, sensation intact. +DP/PT pulses Assessment and Plan (1) Closed left clavicular fracture Assessment & Plan: Left proximal 1/3 acute clavicle fracture Appreciated on cervical spine CT as per Dr. Rankin minimally displaced non operative, sling d/w Dr. Rankin, agrees with above Status: Acute (2) Right knee pain Assessment & Plan: exacerbation of chronic pain after fall xrays PT/OT VTE proph if xrays negative, then ortho stable for d/c d/w Dr. Rankin, agrees with above Status: Acute Radiology Interpretation - Radiology Interpretation #2 Interpretation: Patient Name / ID : BRANDO KRAFT V / [id number] Exam Date : 02/12/2017 10:22:20 ( Approved ) Study Comment : Sex / Age : M / 77Y Creator : Juana Dowd MD Dictator : Juana Dowd MD [place] Cutter : Camera Control Operator : Juana Dowd MD Approver2 : Report Date : 02/12/2017 10:58:11 My Comment : CT cervical spine without IV contrast Indication: Trauma Comparison: None available Technique: Axial computed tomography images were obtained of the cervical spine without the use of intravenous contrast. Coronal and sagittal reformatted images were created and reviewed. This CT exam was performed using 1 or more of the falling dose reduction techniques: Automated exposure control, adjustment of the MAA and/or kV according to patient size, and/or use of iterative reconstruction technique. Radiation dose: Total exam DLP = 604.40 MGy-cm. Findings: Osseous demineralization limits evaluation for acute fracture lines. Degenerative changes including intervertebral disc space narrowing and small osteophyte formation. There is no evidence of acute fracture or subluxation of the cervical spine. The prevertebral soft tissues and spinolaminar lines appear intact. The lateral masses are preserved. The dens tip is intact. There is proper alignment of the lateral masses of C1 with the C2 vertebral body. Carotid artery calcifications. Acute displaced comminuted left clavicle fracture deformity with associated soft tissue stranding, hematoma, and soft tissue edema surrounding the fracture and extending into the visualized axilla and neck soft tissues. Soft tissue stranding and hematoma also noted extending into the upper mediastinum. Included portions of the thyroid gland appear unremarkable. Included portions of lung apices demonstrate extensive emphysematous changes. Impression: Acute displaced comminuted left clavicle fracture deformity (proximal clavicle) with associated soft tissue stranding, hematoma, and soft tissue edema surrounding the fracture and extending into the visualized axilla and neck soft tissues. Soft tissue stranding and hematoma also noted extending into the upper mediastinum. No evidence of acute fracture or subluxation of the cervical spine. Osseous demineralization. Degenerative changes. Extensive emphysematous changes.
[2017-02-14] MEDS: Enoxaparin 40 mg Syringe SC SCH (08:49)
--- NOTE | 2017-02-14 11:01 | RAD ---
PROCEDURE: Right Knee Radiographs. HISTORY: knee pain COMPARISON: None. FINDINGS: BONES: Diffuse osteopenia suggests osteoporosis. No suspicious lytic or blastic change. No displaced fracture identified. JOINTS: Marked medial compartment joint space narrowing suggests osteoarthritis. Varus deformity of the right knee is suspected as well. JOINT EFFUSION: Trace suprapatellar bursa effusion is suggested. OTHER FINDINGS: None. IMPRESSION: 1. No displaced fracture or dislocation. Diffuse osteopenia suggests osteoporosis. 2. Osteoarthritis.
--- NOTE | 2017-02-14 12:52 | CT ---
PROCEDURE: CT LEFT CLAVICLE WITHOUT CONTRAST HISTORY: L CLAVICLE FX COMPARISON: Left clavicle radiographs 02/12/2017. TECHNIQUE: Contiguous axial images left clavicle was performed without intravenous contrast as requested. Coronal and Sagittal reformats generated. Radiation dose: Total exam DLP = 389.15 MGy-cm. This CT exam was performed using one or more of the following dose reduction techniques: Automated exposure control, adjustment of the mA and/or kV according to patient size, and/or use of iterative reconstruction technique FINDINGS: There is an oblique fracture through the anterior medial segment of the left clavicle which may involve the articulation with the upper manubrium. The articulates with the manubrium measures approximately 14 mm at the left compared to 9 mm at the right potentially reflecting disruption of the joint. No underlying suspicious lytic or blastic change. Great vessels deep to the sternum appear grossly nonfocal in this unenhanced examination and there is no pneumothorax through the left apex although emphysematous and fibrotic changes are appreciated at the bilateral apices as imaged. The left acromioclavicular joint appears intact though somewhat degenerated. Secret could supra clavicular edema is evident related to the fracture with edema seen posterior to the clavicle on the full extent of the clavicle essentially. IMPRESSION: Superomedial left clavicular fracture with local soft tissue edema appearing relatively diffuse at the left in the supraclavicular fossa. The left collecting click clavicular manubrial joint appears widened to 14 mm without manubrial fracture appreciable. No distinct lesion underlies the fracture site at the medial left clavicle. Incidental COPD and pulmonary fibrosis as discussed above.
[2017-02-14] MEDS ORDERED: Bisacodyl 5mg EC Tab PO PRN (13:33)
[2017-02-14] MEDS: Albuterol-Ipratrop 3 mg / 0.5 (3 ml) UD INH SCH ×3 (16:56→23:48)
--- NOTE | 2017-02-14 18:07 | RAD ---
HISTORY: Cough, congestion. Technique: Single view portable semi erect @ 17:30. COMPARISON: 02/12/2017. FINDINGS: LUNGS: No active pulmonary disease.Limitations of the current examination: Suboptimal inspiratory effort accentuating markings at both lung bases. If infiltrate/pneumonia are suspected suggest repeat two-view study. PLEURA: No significant pleural effusion identified, no pneumothorax apparent. CARDIOVASCULAR: No radiographic findings to suggest acute or significant cardiovascular disease. OSSEOUS STRUCTURES: No significant abnormalities. VISUALIZED UPPER ABDOMEN: Normal. OTHER FINDINGS: None. IMPRESSION: No active disease. No significant interval change compared to the prior examination(s). Limitations of the current study relate to portable technique, rotation and poor inspiratory effort.
--- NOTE | 2017-02-14 23:04 | CP.PCM.PN ---
Subjective - Date & Time of Evaluation Date of Evaluation: 02/14/17 Time of Evaluation: 13:20 Objective - Vital Signs/Intake and Output Vital Signs (last 24 hours): Temp Pulse Resp BP Pulse Ox 98.3 F 71 20 124/74 98 02/14/17 19:59 02/14/17 19:59 02/14/17 19:59 02/14/17 19:59 02/14/17 19:59 - Medications Medications: Current Medications Acetaminophen (Tylenol 325mg Tab) 650 mg PO Q6 PRN PRN Reason: Pain, Mild (1-3) Albuterol/Ipratropium (Duoneb 3 Mg/0.5 Mg (3 Ml) Ud) 3 ml INH RQ4 ERIKA Last Admin: 02/14/17 19:50 Dose: 3 ml Bisacodyl (Dulcolax) 5 mg PO DAILY PRN PRN Reason: constipation Enoxaparin Sodium (Lovenox) 40 mg SC DAILY ERIKA PRN Reason: Protocol Last Admin: 02/14/17 08:49 Dose: 40 mg Ketorolac Tromethamine (Toradol) 15 mg IVP Q6 PRN PRN Reason: Pain, moderate (4-7) Last Admin: 02/14/17 22:02 Dose: 15 mg Morphine Sulfate (Morphine) 1 mg IVP Q4 PRN PRN Reason: Pain, severe (8-10) Last Admin: 02/13/17 11:09 Dose: 1 mg - Labs Labs: 02/13/17 08:00 02/13/17 06:00
[2017-02-15] MEDS: Albuterol-Ipratrop 3 mg / 0.5 (3 ml) UD INH SCH ×6 (04:56→19:07)
[2017-02-15 05:28] LABS: HEMATOCRIT 33.6 % (35.0-51.0); MEAN CELL VOLUME 95.2 fl (80.0-94.0); MEAN CORPUSCULAR HEMOGLOBIN 31.3 pg (27.0-31.0); MEAN CORPUSCULAR HGB CONC 32.9 g/dL (33.0-37.0); RED CELL DISTRIBUTION WIDTH 14.2 % (11.5-14.5); WHITE BLOOD COUNT 4.7 K/uL (4.8-10.8)
[2017-02-15 05:32] LABS: BLOOD UREA NITROGEN 12 mg/dl (9-20); CALCIUM 8.2 mg/dL (8.4-10.2); CARBON DIOXIDE 28 mmol/L (22-30); CHLORIDE 107 mmol/L (98-107); GFR AFRICAN-AMERICAN > 60; GLUCOSE,RANDOM 94 mg/dL (75-110); POTASSIUM 4.1 MMOL/L (3.6-5.0); SODIUM 140 mmol/l (132-148)
--- NOTE | 2017-02-15 08:51 | CP.PCM.PN ---
Subjective - Date & Time of Evaluation Date of Evaluation: 02/15/17 Time of Evaluation: 08:47 - Subjective Subjective: Ortho follow up for Dr. Rankin Patient states he has a lot of pain today. He complains mostly of right knee, and says he also has pain in his left foot. He says both of these have been hurting him for years, but the right knee is worse after the fall. Pain from the clavicle fracture is controlled. No new complaints. Review of Systems - Review of Systems All systems: reviewed and no additional remarkable complaints except - Cardiovascular Cardiovascular: UNREMARKABLE - Respiratory Respiratory: UNREMARKABLE - Musculoskeletal Musculoskeletal: As Par HPI - Integumentary Integumentary: As Per HPI - Neurological Neurological: UNREMARKABLE - Hematologic/Lymphatic Hematologic: UNREMARKABLE Objective - Vital Signs/Intake and Output Vital Signs (last 24 hours): Temp Pulse Resp BP Pulse Ox 98.0 F 70 18 134/79 97 02/15/17 08:36 02/15/17 08:36 02/15/17 08:36 02/15/17 08:36 02/15/17 08:36 - Medications Medications: Current Medications Acetaminophen (Tylenol 325mg Tab) 650 mg PO Q6 PRN PRN Reason: Pain, Mild (1-3) Albuterol/Ipratropium (Duoneb 3 Mg/0.5 Mg (3 Ml) Ud) 3 ml INH RQ4 ERIKA Last Admin: 02/15/17 07:21 Dose: Not Given Bisacodyl (Dulcolax) 5 mg PO DAILY PRN PRN Reason: constipation Enoxaparin Sodium (Lovenox) 40 mg SC DAILY ERIKA PRN Reason: Protocol Last Admin: 02/14/17 08:49 Dose: 40 mg Ketorolac Tromethamine (Toradol) 15 mg IVP Q6 PRN PRN Reason: Pain, moderate (4-7) Last Admin: 02/15/17 06:32 Dose: 15 mg Morphine Sulfate (Morphine) 1 mg IVP Q4 PRN PRN Reason: Pain, severe (8-10) Last Admin: 02/13/17 11:09 Dose: 1 mg - Labs Labs: 02/15/17 04:30 02/15/17 04:30 - Constitutional Appears: Well, No Acute Distress - Extremities Exam Additional comments: Left clavicle: no change in appearance. Sling intact. TTP, NVID, +ROM elbow/ wrist/fingers Right knee: flexed on pillow. small effusion, no erythema, generalized tenderness, not warm, skin intact calves soft NT neg homans +ROM ankle/toes without pain, mod pain with AROM right knee Left foot: TTP medial aspect of 1st MTP joint. No erythema, effusion, swelling. Noted bunion deformity. Full AROM without pain. Skin intact, dry. +DP/PT pulses Assessment and Plan (1) Closed left clavicular fracture Assessment & Plan: non operative sling pain mgmt ortho stable for d/c f/u Dr. 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 HISTORY: knee pain COMPARISON: None. FINDINGS: BONES: Diffuse osteopenia suggests osteoporosis. No suspicious lytic or blastic change. No displaced fracture identified. JOINTS: Marked medial compartment joint space narrowing suggests osteoarthritis. Varus deformity of the right knee is suspected as well. JOINT EFFUSION: Trace suprapatellar bursa effusion is suggested. OTHER FINDINGS: None. IMPRESSION: 1. No displaced fracture or dislocation. Diffuse osteopenia suggests osteoporosis. 2. Osteoarthritis. Patient Name / ID : BRANDO Ronquillo [id number] Exam Date : 02/14/2017 12:13:54 ( Approved ) Study Comment : Sex / Age : M / 77Y Creator : Julio Cesar Youssef MD Dictator : Julio Cesar Youssef MD [employer] Principal : Manager Surgery : Julio Cesar Youssef MD Approver2 : Report Date : 02/14/2017 12:50:34 My Comment : PROCEDURE: CT LEFT CLAVICLE WITHOUT CONTRAST HISTORY: L CLAVICLE FX COMPARISON: Left clavicle radiographs 02/12/2017. TECHNIQUE: Contiguous axial images left clavicle was performed without intravenous contrast as requested. Coronal and Sagittal reformats generated. Radiation dose: Total exam DLP = 389.15 MGy-cm. This CT exam was performed using one or more of the following dose reduction techniques: Automated exposure control, adjustment of the mA and/or kV according to patient size, and/or use of iterative reconstruction technique FINDINGS: There is an oblique fracture through the anterior medial segment of the left clavicle which may involve the articulation with the upper manubrium. The articulates with the manubrium measures approximately 14 mm at the left compared to 9 mm at the right potentially reflecting disruption of the joint. No underlying suspicious lytic or blastic change. Great vessels deep to the sternum appear grossly nonfocal in this unenhanced examination and there is no pneumothorax through the left apex although emphysematous and fibrotic changes are appreciated at the bilateral apices as imaged. The left acromioclavicular joint appears intact though somewhat degenerated. Secret could supra clavicular edema is evident related to the fracture with edema seen posterior to the clavicle on the full extent of the clavicle essentially. IMPRESSION: Superomedial left clavicular fracture with local soft tissue edema appearing relatively diffuse at the left in the supraclavicular fossa. The left collecting click clavicular manubrial joint appears widened to 14 mm without manubrial fracture appreciable. No distinct lesion underlies the fracture site at the medial left clavicle. Incidental COPD and pulmonary fibrosis as discussed above.
[2017-02-15] MEDS: Enoxaparin 40 mg Syringe SC SCH (09:00)
--- NOTE | 2017-02-15 11:53 | CARD ---
APPROVED REPORT EXAM: Two-dimensional and M-mode echocardiogram with Doppler and color Doppler. Other Information Quality : AverageRhythm : NSR Technically limited study due to Limited Echo window,unable to turn, broken lt clavicle INDICATION Hypertension/HCVD 2D DIMENSIONS IVSd0.97 (0.7-1.1cm)LVDd3.55 (3.9-5.9cm) PWd0.96 (0.7-1.1cm)IVSs0.89 (0.8-1.2cm) LVDs2.68 (2.5-4.0cm)FS (%) 24.5 % PWs1.13 (0.8-1.2cm) M-Mode DIMENSIONS Left Atrium (MM)4.82 (2.5-4.0cm)Aortic Root3.26 (2.2-3.7cm) Aortic Cusp Exc.1.91 (1.5-2.0cm) Mitral Valve MV E Istzgtnb57.3cm/sMV DECEL PCMT412smBU A Alyvusye18.9cm/s MV FZW70shK/A ratio0.9MVA (PHT)3.70cm2 TDI Lateral E' Peak V7.50cm/sMedial E' Peak V6.27cm/sE/Lateral E'11.2 E/Medial E'13.4 LEFT VENTRICLE The left ventricle is normal size. There is normal left ventricular wall thickness. The left ventricular function is normal. The left ventricular ejection fraction is 60% There is normal LV segmental wall motion. The left ventricular diastolic function is normal. No left ventricle thrombus noted on this study. There is no ventricular septal defect visualized. There is no left ventricular aneurysm. There is no mass noted in the left ventricle. RIGHT VENTRICLE The right ventricle is normal size. There is normal right ventricular wall thickness. The right ventricular systolic function is normal. ATRIA The left atrium size is normal. The right atrium size is normal. The interatrial septum is intact with no evidence for an atrial septal defect. AORTIC VALVE The aortic valve is moderately sclerotic. No aortic regurgitation is present. There is no aortic valvular stenosis. There is no aortic valvular vegetation. MITRAL VALVE The mitral valve is normal in structure and function. There is no evidence of mitral valve prolapse. There is no mitral valve stenosis. There is no mitral valve regurgitation noted. TRICUSPID VALVE The tricuspid valve is normal in structure and function. There is no tricuspid valve regurgitation noted. There is no tricuspid valve prolapse or vegetation. There is no tricuspid valve stenosis. PULMONIC VALVE The pulmonary valve is normal in structure and function. There is no pulmonic valvular regurgitation. There is no pulmonic valvular stenosis. GREAT VESSELS The aortic root is normal in size. The ascending aorta is normal in size. The IVC is normal in size and collapses >50% with inspiration. PERICARDIAL EFFUSION The pericardium appears normal. There is no pleural effusion. <Conclusion> Normal LV Systolic Function Aortic Valve Sclerosis
--- NOTE | 2017-02-15 23:41 | CP.PCM.PN ---
Subjective - Date & Time of Evaluation Date of Evaluation: 02/15/17 Time of Evaluation: 11:00 Objective - Vital Signs/Intake and Output Vital Signs (last 24 hours): Temp Pulse Resp BP Pulse Ox 98.6 F 77 16 162/83 H 96 02/15/17 21:06 02/15/17 21:06 02/15/17 21:06 02/15/17 21:06 02/15/17 21:06 Intake and Output: 02/15/17 02/16/17 18:59 06:59 Intake Total 510 Output Total 800 Balance -290 - Medications Medications: Current Medications Acetaminophen (Tylenol 325mg Tab) 650 mg PO Q6 PRN PRN Reason: Pain, Mild (1-3) Albuterol/Ipratropium (Duoneb 3 Mg/0.5 Mg (3 Ml) Ud) 3 ml INH RQ4 ERIKA Last Admin: 02/15/17 19:07 Dose: Not Given Bisacodyl (Dulcolax) 5 mg PO DAILY PRN PRN Reason: constipation Enoxaparin Sodium (Lovenox) 40 mg SC DAILY ERIKA PRN Reason: Protocol Last Admin: 02/15/17 09:00 Dose: 40 mg Ketorolac Tromethamine (Toradol) 15 mg IVP Q6 PRN PRN Reason: Pain, moderate (4-7) Last Admin: 02/15/17 17:14 Dose: 15 mg Morphine Sulfate (Morphine) 1 mg IVP Q4 PRN PRN Reason: Pain, severe (8-10) Last Admin: 02/13/17 11:09 Dose: 1 mg - Labs Labs: 02/15/17 04:30 02/15/17 04:30
[2017-02-16] MEDS: Albuterol-Ipratrop 3 mg / 0.5 (3 ml) UD INH SCH ×5 (00:06→15:24)
[2017-02-16] MEDS: Enoxaparin 40 mg Syringe SC SCH (09:02)
--- NOTE | 2017-02-16 12:51 | CP.PCM.PN ---
Subjective - Date & Time of Evaluation Date of Evaluation: 02/16/17 Time of Evaluation: 12:49 - Subjective Subjective: Ortho f/u Dr. Rankin Patient states he has continued pain in left clavicle at fx site and in right knee. No new complaints. Objective - Vital Signs/Intake and Output Vital Signs (last 24 hours): Temp Pulse Resp BP Pulse Ox 97.9 F 77 20 109/65 98 02/16/17 12:30 02/16/17 12:30 02/16/17 12:30 02/16/17 12:30 02/16/17 12:30 - Medications Medications: Current Medications Acetaminophen (Tylenol 325mg Tab) 650 mg PO Q6 PRN PRN Reason: Pain, Mild (1-3) Albuterol/Ipratropium (Duoneb 3 Mg/0.5 Mg (3 Ml) Ud) 3 ml INH RQ4 ERIKA Last Admin: 02/16/17 11:31 Dose: 3 ml Bisacodyl (Dulcolax) 5 mg PO DAILY PRN PRN Reason: constipation Enoxaparin Sodium (Lovenox) 40 mg SC DAILY ERIKA PRN Reason: Protocol Last Admin: 02/16/17 09:02 Dose: 40 mg Ketorolac Tromethamine (Toradol) 15 mg IVP Q6 PRN PRN Reason: Pain, moderate (4-7) Last Admin: 02/16/17 09:02 Dose: 15 mg Morphine Sulfate (Morphine) 1 mg IVP Q4 PRN PRN Reason: Pain, severe (8-10) Last Admin: 02/16/17 05:39 Dose: 1 mg - Labs Labs: 02/15/17 04:30 02/15/17 04:30 - Constitutional Appears: No Acute Distress - Respiratory Exam Respiratory Exam: NORMAL BREATHING PATTERN - Cardiovascular Exam Additional comments: LUE: +radial pulse calves soft NT neg homans - Extremities Exam Additional comments: sling intact to LUE sensation intact to LUE/RLE - Neurological Exam Neurological Exam: Alert, Awake, Oriented x3 Neuro motor strength exam: Left Upper Extremity: 5 (+ROM fingers,wrist, elbow), Right Lower Extremity: 5 (+ankle DF/PF) - Psychiatric Exam Psychiatric exam: Normal Affect, Normal Mood - Skin Additional comments: Left clavicle +ecchymosis, TTP, swelling and ecchymosis improved Right knee: normal color, intact, no erythema Assessment and Plan (1) Closed left clavicular fracture Assessment & Plan: non operative sling pain mgmt PT/OT ortho stable for d/c f/u Dr. 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
[2017-02-16 15:56] VITALS: BP 121/75; PULSE 80; RESP 18; TEMP 97.7; O2SAT 95
--- NOTE | 2017-02-16 23:05 | CP.PCM.DIS ---
Provider - Provider Date of Admission: 02/12/17 12:55 Attending physician: Laurel Merlos MD Time Spent in preparation of Discharge (in minutes): 25 Hospital Course - Lab Results Lab Results: Micro Results 02/12/17 10:45 Blood-Venous Blood Culture - Preliminary NO GROWTH AFTER 4 DAYS 02/12/17 14:25 Urine,Clean Catch Urine Culture - Final No Growth (<1,000 CFU/ML) Most Recent Lab Values WBC 4.7 K/uL (4.8-10.8) L 02/15/17 04:30 RBC 3.53 Mil/uL (4.40-5.90) L 02/15/17 04:30 Hgb 11.0 g/dL (12.0-18.0) L 02/15/17 04:30 Hct 33.6 % (35.0-51.0) L 02/15/17 04:30 MCV 95.2 fl (80.0-94.0) H 02/15/17 04:30 MCH 31.3 pg (27.0-31.0) H 02/15/17 04:30 MCHC 32.9 g/dL (33.0-37.0) L 02/15/17 04:30 RDW 14.2 % (11.5-14.5) 02/15/17 04:30 Plt Count 72 K/uL (130-400) L 02/15/17 04:30 MPV 8.2 fl (7.2-11.7) 02/12/17 10:45 Neut % (Auto) 91.2 % (50.0-75.0) H 02/12/17 10:45 Lymph % (Auto) 1.8 % (20.0-40.0) L 02/12/17 10:45 [place] % (Auto) 6.3 % (0.0-10.0) 02/12/17 10:45 Eos % (Auto) 0.0 % (0.0-4.0) 02/12/17 10:45 Baso % (Auto) 0.7 % (0.0-2.0) 02/12/17 10:45 Neut # 19.8 K/uL (1.8-7.0) H 02/12/17 10:45 Lymph # 0.4 K/uL (1.0-4.3) L 02/12/17 10:45 [place] # 1.4 K/uL (0.0-0.8) H 02/12/17 10:45 Eos # 0.0 K/uL (0.0-0.7) 02/12/17 10:45 Baso # 0.2 K/uL (0.0-0.2) 02/12/17 10:45 Neutrophils % (Manual) 82 % (42-75) H 02/12/17 10:45 Band Neutrophils % 5 % (0-2) H 02/12/17 10:45 Lymphocytes % (Manual) 3 % (20-50) L 02/12/17 10:45 Monocytes % (Manual) 10 % (0-10) 02/12/17 10:45 Toxic Granulation Present 02/12/17 10:45 Platelet Estimate Normal (NORMAL) 02/12/17 10:45 Poikilocytosis (manual Slight 02/12/17 10:45 Anisocytosis (manual) Moderate 02/12/17 10:45 Tear Drop Cells Slight 02/12/17 10:45 pO2 39 mm/Hg (30-55) 02/12/17 13:30 VBG pH 7.34 (7.32-7.43) 02/12/17 13:30 VBG pCO2 50 mmHg (40-60) 02/12/17 13:30 VBG HCO3 24.5 mmol/L 02/12/17 13:30 VBG Total CO2 28.5 mmol/L (22-28) H 02/12/17 13:30 VBG O2 Sat (Calc) 79.4 % (40-65) H 02/12/17 13:30 VBG Base Excess 0.4 mmol/L (0.0-2.0) 02/12/17 13:30 VBG Potassium 4.4 mmol/L (3.6-5.2) 02/12/17 13:30 Sodium 138.0 mmol/L (132-148) 02/12/17 13:30 Chloride 108.0 mmol/L (98-107) H 02/12/17 13:30 Glucose 139 mg/dL (75-110) H 02/12/17 13:30 Lactate 2.7 mmol/L (0.7-2.1) H 02/12/17 13:30 FiO2 21.0 % 02/12/17 13:30 Blood Gas Comments Ra21/vbh 02/12/17 09:24 Crit Value Called To Stephanie galicia r.n. 02/12/17 09:24 Crit Value Called By Ely 02/12/17 09:24 Crit Value Read Back Y 02/12/17 09:24 Blood Gas Notified Time 1047 02/12/17 09:24 Sodium 140 mmol/l (132-148) 02/15/17 04:30 Potassium 4.1 MMOL/L (3.6-5.0) 02/15/17 04:30 Chloride 107 mmol/L (98-107) 02/15/17 04:30 Carbon Dioxide 28 mmol/L (22-30) 02/15/17 04:30 Anion Gap 9 (10-20) L 02/15/17 04:30 BUN 12 mg/dl (9-20) 02/15/17 04:30 Creatinine 0.6 mg/dL (0.8-1.5) L 02/15/17 04:30 Est GFR ( Amer) > 60 02/15/17 04:30 Est GFR (Non-Af Amer) > 60 02/15/17 04:30 Random Glucose 94 mg/dL (75-110) 02/15/17 04:30 Calcium 8.2 mg/dL (8.4-10.2) L 02/15/17 04:30 Total Bilirubin 1.5 mg/dl (0.2-1.3) H 02/13/17 06:00 AST 28 U/L (17-59) 02/13/17 06:00 ALT 27 U/L (21-72) 02/13/17 06:00 Alkaline Phosphatase 103 U/L (38-126) 02/13/17 06:00 Total Creatine Kinase 109 U/L (55-170) 02/12/17 10:45 Troponin I < 0.0120 ng/mL (0.00-0.120) 02/13/17 20:00 Total Protein 6.8 G/DL (6.3-8.2) 02/13/17 06:00 Albumin 2.7 g/dL (3.5-5.0) L 02/13/17 06:00 Globulin 4.1 gm/dL (2.2-3.9) H 02/13/17 06:00 Albumin/Globulin Ratio 0.7 (1.0-2.1) L 02/13/17 06:00 Venous Blood Potassium 4.4 mmol/L (3.6-5.2) 02/12/17 13:30 Urine Color [place] (YELLOW) 02/12/17 09:44 Urine Clarity Slighty-cloudy (Clear) 02/12/17 09:44 Urine pH 5.0 (5.0-8.0) 02/12/17 09:44 Ur Specific [place] 1.028 (1.003-1.030) 02/12/17 09:44 Urine Protein 100 mg/dL (NEGATIVE) 02/12/17 09:44 Urine Glucose (UA) Neg mg/dL (Normal) 02/12/17 09:44 Urine Ketones Negative mg/dL (NEGATIVE) 02/12/17 09:44 Urine Blood Negative (NEGATIVE) 02/12/17 09:44 Urine Nitrate Negative (NEGATIVE) 02/12/17 09:44 Urine Bilirubin Negative (NEGATIVE) 02/12/17 09:44 Urine Urobilinogen 4.0 mg/dL (0.2-1.0) 10 09:44 Ur Leukocyte Esterase Neg [place]/uL (Negative) 02/12/17 09:44 Urine RBC (Auto) 1 /hpf (0-3) 02/12/17 09:44 Urine Microscopic WBC < 1 /hpf (0-5) 02/12/17 09:44 Ur Squamous Epith Cells 1 /hpf (0-5) 02/12/17 09:44 Hyaline Casts 0-2 /hpf (0-2) 02/12/17 09:44 Discharge Exam - Head Exam Head Exam: ATRAUMATIC, NORMAL INSPECTION, NORMOCEPHALIC Discharge Plan - Discharge Medications Prescriptions: oxyCODONE/Acetaminophen [Percocet 5/325 mg Tab] 1 ea PO Q4 #20 tab - Follow Up Plan Condition: FAIR Disposition: REHAB FACILITY/REHAB UNIT Additional Instructions: pt. cleared for discharge to [facility] by cleared by ortho cont. Pt/OT Referrals: Laurel Merlos MD [Staff Provider] -
== END 2017-02-16 16:30 | disposition home health service (06) | DRG 563 ==
LOC: H.ER 08:43 → H.ERHOLD 12:55 → H.TEL 18:35
PROVIDERS: ADMIT Internal Medicine; ATTEND Internal Medicine
DX: S42.012A Anterior displaced fracture of sternal end of left clavicle, initial encounter for closed fracture (principal); J44.1 Chronic obstructive pulmonary disease with (acute) exacerbation; J84.10 Pulmonary fibrosis, unspecified; G89.29 Other chronic pain; M17.11 Unilateral primary osteoarthritis, right knee; M19.012 Primary osteoarthritis, left shoulder; S40.012A Contusion of left shoulder, initial encounter; M85.80 Other specified disorders of bone density and structure, unspecified site; I10 Essential (primary) hypertension; M21.612 Bunion of left foot; W06.XXXA Fall from bed, initial encounter; F17.210 Nicotine dependence, cigarettes, uncomplicated; Y93.9 Activity, unspecified; Y92.003 Bedroom of unspecified non-institutional (private) residence as the place of occurrence of the external cause; Z87.01 Personal history of pneumonia (recurrent)

== ENCOUNTER 2017-06-18 11:35 | Observation (INO) | payer MEDICARE ==
--- NOTE | 2017-06-18 12:24 | ED PDOC ---
HPI: Back Time Seen by Provider: 06/18/17 12:15 Chief Complaint (Nursing): Back Pain History Per: Patient History/Exam Limitations: no limitations Current Symptoms Are (Timing): Still Present Additional History Per: EMS Past Medical History Vital Signs: Last Vital Signs Temp 98 F 06/18/17 11:46 Pulse 102 H 06/18/17 11:46 Resp 16 06/18/17 11:46 BP 167/95 H 06/18/17 11:46 Pulse Ox 90 L 06/18/17 11:46 - Medical History PMH: COPD, Depression, HTN, Pneumonia, Seizures Denies: HIV, Chronic Kidney Disease - Surgical History Surgical History: Cholecystectomy - Family History Family History: States: Unknown Family Hx - Home Medications Home Medications: Ambulatory Orders Medication Instructions Recorded Acetaminophen [Tylenol 325mg tab] 650 mg PO Q6 PRN tab 02/16/17 Albuterol/Ipratropium [Duoneb 3 3 ml INH RQ4 neb 02/16/17 mg/0.5 mg (3 ml) UD] Bisacodyl [Dulcolax] 5 mg PO DAILY PRN ect 02/16/17 Enoxaparin [Lovenox] 40 mg SC DAILY syr 02/16/17 oxyCODONE/Acetaminophen [Percocet 1 ea PO Q4 #20 tab 02/16/17 5/325 mg Tab] - Allergies Allergies/Adverse Reactions: Allergies Allergy/AdvReac Type Severity Reaction Status Date / Time No Known Allergies Allergy Verified 02/22/14 12:14 - ECG O2 Sat by Pulse Oximetry: 90 Disposition - Disposition
--- NOTE | 2017-06-18 12:27 | ED PDOC ---
HPI: Back Time Seen by Provider: 06/18/17 12:15 Chief Complaint (Nursing): Back Pain Chief Complaint (Provider): Back Pain History Per: Patient History/Exam Limitations: no limitations Current Symptoms Are (Timing): Still Present Additional History Per: EMS Additional Complaint(s): Berny is a 77 y/o male with a history of COPD who was brought to the ED via EMS for back pain. Patient was just released from 3 months at a rehab facility and is here with belly pain which he describes as spasmotic and increased back pain. He is unable to walk. He denies fever or chills, but notes an ongoing cough. PMD: None Provided Past Medical History Reviewed: Historical Data, Nursing Documentation, Vital Signs Vital Signs: Last Vital Signs Temp 98 F 06/18/17 11:46 Pulse 102 H 06/18/17 11:46 Resp 16 06/18/17 11:46 BP 167/95 H 06/18/17 11:46 Pulse Ox 90 L 06/18/17 11:46 - Medical History PMH: COPD, Depression, HTN, Pneumonia, Seizures Denies: HIV, Chronic Kidney Disease - Surgical History Surgical History: Cholecystectomy - Family History Family History: States: Unknown Family Hx - Home Medications Home Medications: Ambulatory Orders Medication Instructions Recorded No Known Home Med 06/18/17 - Allergies Allergies/Adverse Reactions: Allergies Allergy/AdvReac Type Severity Reaction Status Date / Time No Known Allergies Allergy Verified 02/22/14 12:14 Review of Systems ROS Statement: Except As Marked, All Systems Reviewed And Found Negative Constitutional: Negative for: Fever, Chills Gastrointestinal: Positive for: Abdominal Pain (spasmotic) Musculoskeletal: Positive for: Back Pain - Laboratory Results Result Diagrams: 06/18/17 13:09 06/18/17 13:09 - ECG O2 Sat by Pulse Oximetry: 90 (RA) Pulse Ox Interpretation: Abnormal - Progress ED Course And Treament: patient refused bloodwork initially. AFter discussion with Dr. Merlos and repeat discussion with patient, bloodwork allowed. Patient refused CXR Patient refused duoneb x 1 dose in ED Patient initially refused morphine but later allowed nurse to give morphine 4 mg iv x 1 dose for pain patient refused fleet enema Seen by Dr. Merlos in ED. Will admission for observation of persistent abdominal pain/back pain/copd Medical Decision Making Medical Decision Making: Time: 12:15 Initial Plan: --VBG --EKG --BNP --CMP --Troponin --CBC --Duoneb --Blood Culture --Urine Culture --Urinalysis Time: 12:32 --Spoke to Dr. Merlos who requests CT abdomen & pelvis for belly pain and XR back to eval back pain. Time: 14:17 --Chest XR ordered Time: 15:18 --Morphine Time: 15:37 CT LUMBAR SPINE FINDINGS: VERTEBRAE: The current study reveals fairly exuberant multilevel biconcave -fish-mouth endplate deformities involving the L5 through the T10 segments. The no acute compression fractures are identified. The vertebral bodies exhibit normal alignment. Facets also normally aligned. DISCS/SPINAL CANAL/NEURAL FORAMINA: L1-2: Disc space height maintained. No disc herniation or significant disc bulge. Thinning intradiscal calcifications. Central canal and exit foramina adequate. . L2-3: Disc space height maintained. Intradiscal calcification. No disc herniation or significant disc bulge. Facets are mildly hypertrophic. Central canal and exit foramina are also adequate. L3-4: Disc space height maintained. No disc herniation or significant disc bulge. Facet joints are mildly hypertrophic. Central canal and exit foramina adequate. . L4-5: Disc space height maintained. No disc herniation or significant disc bulge. Small amount of intradiscal calcification and vacuum disc phenomena present. Facet joints are mild to moderately hypertrophic. Central canal and exit foramina adequate. L5-S1: Disc space height relatively maintained No disc herniation or significant disc bulge. Mild intradiscal calcification Facet joints are mild-to- moderately hypertrophic. . Central canal is quite capacious. Exit foramina appear adequate. PARASPINAL SOFT TISSUES: Paraspinal soft tissues unremarkable. OTHER FINDINGS: Re- demonstrated is a endovascular stent graft within the distal abdominal aorta extending into the both iliac arteries. . 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 Mild chronic appearing pleural thickening and parenchymal scarring/atelectasis right lung base. The the the there is also small hiatal hernia with wall thickening of the distal esophagus likely due to protrusion of gastric mucosa. Possibility of esophagitis not excluded. Clinical correlation recommended. IMPRESSION: No acute compression fractures. Re- demonstrated are fairly significant multilevel by concave -fish-mouth endplate deformities of the L5 through the T10 segments. No disc herniations nor significant disc bulges. Facet joints do appear mildly hypertrophic. Central canal and exit foramina appear adequate throughout. In situ endovascular stent graft with 2 localized aneurysmal dilatations, both of which are located above the level of the proximal margin of the endovascular stent graft donor. See above discussion for additional details. Time: 16:18 CT Abdomen & Pelvis FINDINGS: LOWER THORAX: Unremarkable. No acute parenchymal there appears to be at localized of pleural thickening posterior sulcus with chronic appearing atelectasis and or scarring. The underlying chronic interstitial changes are also felt to be present both low lower lung álvarez. No effusion or basilar pneumothorax. Questionable slight shift of the mediastinum from left to right. There is a small hiatal hernia with wall thickening of the distal esophagus that could be due to protrusion of gastric mucosa. Possibility of esophagitis not excluded. LIVER: Unremarkable. No gross lesion or ductal dilatation. Liver exhibits normal size measuring approximately 16 cm in CC dimension. Mild diffuse fatty hepatic infiltration. No definitive hepatic mass collection or calcification. Portal and splenic veins are opacified GALLBLADDER AND BILE DUCTS: The gallbladder has been surgically resected with metallic clips gallbladder fossa. PANCREAS: The pancreas appears somewhat atrophic and fatty replaced. No obvious pancreatic masses or collections. SPLEEN: Spleen is enlarged measuring approximately 15 cm in greatest dimension. No splenic masses or collections identified. ADRENALS: Unremarkable. No adrenal lesions. KIDNEYS AND URETERS: Kidneys demonstrate symmetric nephrograms. No evidence of nephrolithiasis or hydronephrosis. There is a tiny approximately 3.6 mm low-attenuation focus along the medial cortex upper pole left kidney that may represent tiny cortical cyst. Renal ultrasound followup could be performed to confirm. BLADDER: The urinary bladder is physiologically distended. No evidence of intraluminal urinary bladder calculi. . REPRODUCTIVE: Prostate gland measures approximately 4.0 cm in transverse dimension. Prostatic calcifications are present APPENDIX: Normal-appearing appendix best seen on axial image number [id number] 126. BOWEL: Evaluation of the bowel is limited due to the lack of oral contrast material. The stomach is relatively collapsed. Visualized loops of small bowel exhibit normal contour and caliber . Note made of multiple nondistended air-filled loops of small bowel in the pelvis. No evidence of acute mechanical small bowel obstruction. Large amount of stool is seen within the cecum and ascending colon with moderately large amount of air in the remaining large bowel with relative collapse of the at distal sigmoid and rectum. PERITONEUM: Unremarkable. No fluid collection. No free air. Small fat containing bilateral inguinal hernias are present right slightly larger than left. There is also a small to medium sized fat containing umbilical hernia. LYMPH NODES: Unremarkable. No enlarged lymph nodes. VASCULATURE: Re- demonstrated is a endovascular stent graft within the distal abdominal aorta extending into the both iliac arteries. . 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 BONES: Re- demonstrated arm multilevel by concave -fish-mouth endplate deformities involving the lower thoracic and lumbar spine as detailed concurrent CT scan of the lumbar spine and corresponding report. OTHER FINDINGS: None. IMPRESSION: Chronic pleural thickening and atelectasis/scarring right lung base with what appears represent underlying interstitial fibrosis. Mild fatty hepatic infiltration. Status post cholecystectomy. Splenomegaly. Findings consistent with localized fecal retention/ constipation within the cecum and ascending colon with moderately distended air-filled transverse and proximal descending colon. No evidence to suggest obstruction however. endovascular stent graft within the distal abdominal aorta extending into the both iliac arteries. . 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 See above discussion for additional details and findings Scribe Attestation: Documented by Cullen Miranda, acting as a scribe for Quynh Glaser PA-C Provider Scribe Attestation: All medical record entries made by the Scribe were at my direction and personally dictated by me. I have reviewed the chart and agree that the record accurately reflects my personal performance of the history, physical exam, medical decision making, and the department course for this patient. I have also personally directed, reviewed, and agree with the discharge instructions and disposition. Disposition - Clinical Impression Clinical Impression: COPD (chronic obstructive pulmonary disease), Back pain - Patient ED Disposition Is Patient to be Admitted: Yes - Disposition Disposition Time: 19:26 Condition: FAIR - Pt Status Changed To: Hospital Disposition Of: Observation
[2017-06-18] MEDS ORDERED: Albuterol-Ipratrop 3 mg / 0.5 (3 ml) UD INH STA (12:28)
[2017-06-18] MEDS ORDERED: Albuterol-Ipratrop 3 mg / 0.5 (3 ml) UD ONE (12:41)
[2017-06-18 13:13] LABS: BASO % 0.6 % (0.0-2.0); EOS # 0.1 K/uL (0.0-0.7); MEAN CELL VOLUME 93.3 fl (80.0-94.0); MEAN CORPUSCULAR HEMOGLOBIN 30.5 pg (27.0-31.0); MEAN CORPUSCULAR HGB CONC 32.7 g/dL (33.0-37.0); MONO # 0.5 K/uL (0.0-0.8); NEUT # 5.8 K/uL (1.8-7.0)
[2017-06-18 13:19] LABS: EOS % 1.8 % (0.0-4.0); HEMOGLOBIN 14.7 g/dL (12.0-18.0); LYMPH # 0.9 K/uL (1.0-4.3); LYMPH % 11.8 % (20.0-40.0); MEAN PLATELET VOLUME 8.3 fl (7.2-11.7); NEUT % 78.8 % (50.0-75.0); RBC 4.82 Mil/uL (4.40-5.90); RED CELL DISTRIBUTION WIDTH 16.1 % (11.5-14.5); WHITE BLOOD COUNT 7.4 K/uL (4.8-10.8)
[2017-06-18 13:22] LABS: VENOUS BLOOD GAS BASE EXCESS 6.4 mmol/L (0.0-2.0); VENOUS BLOOD GAS PCO2 58 mmHg (40-60); VENOUS BLOOD GAS PO2 16 mm/Hg (30-55); VENOUS BLOOD PH 7.37 (7.32-7.43)
[2017-06-18 13:35] LABS: CALCIUM 8.8 mg/dL (8.4-10.2); GFR AFRICAN-AMERICAN > 60; GFR NON-AFRICAN AMERICAN > 60
[2017-06-18 13:37] LABS: SQUAMOUS EPITHIAL < 1 /hpf (0-5); URINE BILIRUBIN NEGATIVE (NEGATIVE); URINE BLOOD NEGATIVE (NEGATIVE); URINE CLARITY CLEAR (Clear); URINE COLOR YELLOW (YELLOW); URINE GLUCOSE (UA) NEG (Normal); URINE HYALINE CAST 0-2 /hpf (0-2); URINE LEUKOCYTE ESTERASE NEG Leu/uL (Negative); URINE NITRATE NEGATIVE (NEGATIVE); URINE PROTEIN 30 mg/dL (NEGATIVE)
[2017-06-18] MEDS ORDERED: Iohexol 240 (50 ml) PO ONE (13:46)
[2017-06-18 13:47] LABS: B-TYPE NATRIURETIC PEPTIDE 800 pg/ml (0-900)
[2017-06-18 13:49] LABS: ALB/GLOB RATIO 0.7 (1.0-2.1); ALBUMIN 3.7 g/dL (3.5-5.0); ALT/SGPT < 6 U/L (21-72); AST/SGOT 42 U/L (17-59); BLOOD UREA NITROGEN 11 mg/dl (9-20)
[2017-06-18] MEDS ORDERED: Iohexol 300 100 ML IJ ONE (14:31)
[2017-06-18] MEDS ORDERED: Sodium Chloride 0.9% 50 ML IV ONE (14:32)
[2017-06-18] MEDS ORDERED: Morphine 4 MG/ML VIAL IVP ONE (15:14)
--- NOTE | 2017-06-18 15:38 | CT ---
PROCEDURE: CT scan lumbar spine 06/18/2017 HISTORY: Back pain. Rule out fracture. COMPARISON: Correlation made with CT scan of the abdomen and pelvis dated 02/23/2014 which image the lumbar spine in 3 planes. TECHNIQUE: Contiguous helical/transaxial computed tomography images were obtained of the lumbar spine without the use of intravenous contrast. Coronal and sagittal reformatted images were created and reviewed. Radiation dose: Total exam DLP = 3658.78 mGy-cm. This CT exam was performed using one or more of the following dose reduction techniques: Automated exposure control, adjustment of the mA and/or kV according to patient size, and/or use of iterative reconstruction technique. FINDINGS: VERTEBRAE: The current study reveals fairly exuberant multilevel biconcave -fish-mouth endplate deformities involving the L5 through the T10 segments. The no acute compression fractures are identified. The vertebral bodies exhibit normal alignment. Facets also normally aligned. DISCS/SPINAL CANAL/NEURAL FORAMINA: L1-2: Disc space height maintained. No disc herniation or significant disc bulge. Thinning intradiscal calcifications. Central canal and exit foramina adequate. . L2-3: Disc space height maintained. Intradiscal calcification. No disc herniation or significant disc bulge. Facets are mildly hypertrophic. Central canal and exit foramina are also adequate. L3-4: Disc space height maintained. No disc herniation or significant disc bulge. Facet joints are mildly hypertrophic. Central canal and exit foramina adequate. . L4-5: Disc space height maintained. No disc herniation or significant disc bulge. Small amount of intradiscal calcification and vacuum disc phenomena present. Facet joints are mild to moderately hypertrophic. Central canal and exit foramina adequate. L5-S1: Disc space height relatively maintained No disc herniation or significant disc bulge. Mild intradiscal calcification Facet joints are [id number] hypertrophic. . Central canal is quite capacious. Exit foramina appear adequate. PARASPINAL SOFT TISSUES: Paraspinal soft tissues unremarkable. OTHER FINDINGS: Re- demonstrated is a endovascular stent graft within the distal abdominal aorta extending into the both iliac arteries. . 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 Mild chronic appearing pleural thickening and parenchymal scarring/atelectasis right lung base. The the the there is also small hiatal hernia with wall thickening of the distal esophagus likely due to protrusion of gastric mucosa. Possibility of esophagitis not excluded. Clinical correlation recommended. IMPRESSION: No acute compression fractures. Re- demonstrated are fairly significant multilevel by concave -fish-mouth endplate deformities of the L5 through the T10 segments. No disc herniations nor significant disc bulges. Facet joints do appear mildly hypertrophic. Central canal and exit foramina appear adequate throughout. In situ endovascular stent graft with 2 localized aneurysmal dilatations, both of which are located above the level of the proximal margin of the endovascular stent graft donor. See above discussion for additional details.
--- NOTE | 2017-06-18 16:19 | CT ---
PROCEDURE: CT scan of the abdomen and pelvis dated 06/18/2017 HISTORY: Abdominal pain. COMPARISON: Comparison made with CT scan of the abdomen and pelvis dated 02/23/2014. TECHNIQUE: Contiguous helical/transaxial images of the abdomen and pelvis performed of following intravenous injection of approximately 95 cc Omnipaque 300 contrast material. . Coronal and Sagittal reformats generated. Radiation dose: Total exam DLP = This CT exam was performed using one or more of the following dose reduction techniques: Automated exposure control, adjustment of the mA and/or kV according to patient size, and/or use of iterative reconstruction technique. FINDINGS: LOWER THORAX: Unremarkable. No acute parenchymal there appears to be at localized of pleural thickening posterior sulcus with chronic appearing atelectasis and or scarring. The underlying chronic interstitial changes are also felt to be present both low lower lung álvarez. No effusion or basilar pneumothorax. Questionable slight shift of the mediastinum from left to right. There is a small hiatal hernia with wall thickening of the distal esophagus that could be due to protrusion of gastric mucosa. Possibility of esophagitis not excluded. LIVER: Unremarkable. No gross lesion or ductal dilatation. Liver exhibits normal size measuring approximately 16 cm in CC dimension. Mild diffuse fatty hepatic infiltration. No definitive hepatic mass collection or calcification. Portal and splenic veins are opacified GALLBLADDER AND BILE DUCTS: The gallbladder has been surgically resected with metallic clips gallbladder fossa. PANCREAS: The pancreas appears somewhat atrophic and fatty replaced. No obvious pancreatic masses or collections. SPLEEN: Spleen is enlarged measuring approximately 15 cm in greatest dimension. No splenic masses or collections identified. ADRENALS: Unremarkable. No adrenal lesions. KIDNEYS AND URETERS: Kidneys demonstrate symmetric nephrograms. No evidence of nephrolithiasis or hydronephrosis. There is a tiny approximately 3.6 mm low-attenuation focus along the medial cortex upper pole left kidney that may represent tiny cortical cyst. Renal ultrasound followup could be performed to confirm. BLADDER: The urinary bladder is physiologically distended. No evidence of intraluminal urinary bladder calculi. . REPRODUCTIVE: Prostate gland measures approximately 4.0 cm in transverse dimension. Prostatic calcifications are present APPENDIX: Normal-appearing appendix best seen on axial image number [id number]. BOWEL: Evaluation of the bowel is limited due to the lack of oral contrast material. The stomach is relatively collapsed. Visualized loops of small bowel exhibit normal contour and caliber . Note made of multiple nondistended air-filled loops of small bowel in the pelvis. No evidence of acute mechanical small bowel obstruction. Large amount of stool is seen within the cecum and ascending colon with moderately large amount of air in the remaining large bowel with relative collapse of the at distal sigmoid and rectum. PERITONEUM: Unremarkable. No fluid collection. No free air. Small fat containing bilateral inguinal hernias are present right slightly larger than left. There is also a small to medium sized fat containing umbilical hernia. LYMPH NODES: Unremarkable. No enlarged lymph nodes. VASCULATURE: Re- demonstrated is a endovascular stent graft within the distal abdominal aorta extending into the both iliac arteries. . 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 BONES: Re- demonstrated arm multilevel by concave -fish-mouth endplate deformities involving the lower thoracic and lumbar spine as detailed concurrent CT scan of the lumbar spine and corresponding report. OTHER FINDINGS: None. IMPRESSION: Chronic pleural thickening and atelectasis/scarring right lung base with what appears represent underlying interstitial fibrosis. Mild fatty hepatic infiltration. Status post cholecystectomy. Splenomegaly. Findings consistent with localized fecal retention/ constipation within the cecum and ascending colon with moderately distended air-filled transverse and proximal descending colon. No evidence to suggest obstruction however. endovascular stent graft within the distal abdominal aorta extending into the both iliac arteries. . 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 See above discussion for additional details and findings
[2017-06-19 00:19] VITALS: RESP 20
--- NOTE | 2017-06-19 00:19 | CP.PCM.HP ---
History of Present Illness - History of Present Illness History of Present Illness: A 77 year old male with hx of COPD who presents to the ED with c/o of back pain which has been ongoing for a few days. Pt also states he has been having some abdominal pain. The patient was found to have moderate constipation in the ED, but the patient refused enema. The patient denies any cp, sob, f/c/n/v. Pt patient was medicated with morphine for back pain and was admitted for observation of back pain pending CT lumbar and CT abd/Pelvis. Present on Admission - Present on Admission Any Indicators Present on Admission: Yes Review of Systems - Review of Systems All systems: reviewed and no additional remarkable complaints except (as noted) - Constitutional Constitutional: absent: Fatigue, Fever, Headache - Cardiovascular Cardiovascular: As Per HPI - Respiratory Respiratory: As Per HPI - Gastrointestinal Gastrointestinal: As Per HPI - Neurological Neurological: As Per HPI Past Patient History - Infectious Disease Hx of Infectious Diseases: None - Past Medical History & Family History Past Medical History?: Yes - Past Social History Smoking Status: Light Smoker < 10 Cigarettes Daily - CARDIAC Hx Hypertension: Yes - PULMONARY Hx Chronic Obstructive Pulmonary Disease (COPD): Yes Hx Pneumonia: Yes - NEUROLOGICAL Hx Seizures: Yes - HEENT Hx HEENT Problems: No - RENAL Hx Chronic Kidney Disease: No - ENDOCRINE/METABOLIC Hx Endocrine Disorders: No - HEMATOLOGICAL/ONCOLOGICAL Hx Human Immunodeficiency Virus (HIV): No - INTEGUMENTARY Hx Dermatological Problems: Yes Other/Comment: plaque scaly violacious lesion 6 x 4 cm over the left upper quadrant present since 7 yrs ago and progressively expanding - MUSCULOSKELETAL/RHEUMATOLOGICAL Hx Musculoskeletal Disorders: Yes Hx Falls: Yes - GASTROINTESTINAL Hx Gastrointestinal Disorders: No Other/Comment: increasing abdominal girth the past few yrs - GENITOURINARY/GYNECOLOGICAL Hx Genitourinary Disorders: No - PSYCHIATRIC Hx Depression: Yes - SURGICAL HISTORY Hx Cholecystectomy: Yes - ANESTHESIA Hx Anesthesia: Yes Hx Anesthesia Reactions: No Hx Malignant Hyperthermia: No Meds Home Medications: Home Medication List Medication Instructions Recorded Confirmed Type Nystatin 1 each MC BID 14 Days powder.ea. 06/19/17 Rx oxyCODONE/Acetaminophen [Percocet 1 ea PO Q6 #5 tab 06/19/17 Rx 5/325 mg Tab] Allergies/Adverse Reactions: Allergies Allergy/AdvReac Type Severity Reaction Status Date / Time No Known Allergies Allergy Verified 06/18/17 20:29 Physical Exam - Constitutional Appears: Well, No Acute Distress - Head Exam Head Exam: ATRAUMATIC, NORMOCEPHALIC - Eye Exam Eye Exam: EOMI, Normal appearance Pupil Exam: NORMAL ACCOMODATION - ENT Exam ENT Exam: Mucous Membranes Moist - Neck Exam Neck exam: Positive for: Full Rom, Normal Inspection - Respiratory Exam Respiratory Exam: Clear to Auscultation Bilateral, NORMAL BREATHING PATTERN - Cardiovascular Exam Cardiovascular Exam: REGULAR RHYTHM, +S1, +S2 - GI/Abdominal Exam GI & Abdominal Exam: Normal Bowel Sounds, Soft - Rectal Exam Rectal Exam: Deferred - Back Exam Back exam: NORMAL INSPECTION - Neurological Exam Neurological exam: Alert, Oriented x3 - Psychiatric Exam Psychiatric exam: Normal Affect, Normal Mood - Skin Skin Exam: Dry, Normal Color, Warm Results - Vital Signs Recent Vital Signs: Last Vital Signs Temp 98 F 06/18/17 11:46 Pulse 87 06/18/17 21:13 Resp 22 06/18/17 21:13 BP 140/87 06/18/17 21:13 Pulse Ox 90 L 06/18/17 20:09 - Labs Result Diagrams: 06/19/17 05:50 06/19/17 05:50 Labs: Laboratory Results - last 24 hr 06/18/17 06/18/17 06/18/17 13:09 13:09 13:15 WBC 7.4 D RBC 4.82 Hgb 14.7 D Hct 44.9 MCV 93.3 MCH 30.5 MCHC 32.7 L RDW 16.1 H Plt Count 116 L D MPV 8.3 Neut % (Auto) 78.8 H Lymph % (Auto) 11.8 L [place] % (Auto) 7.0 Eos % (Auto) 1.8 Baso % (Auto) 0.6 Neut # (Auto) 5.8 Lymph # (Auto) 0.9 L [place] # (Auto) 0.5 Eos # (Auto) 0.1 Baso # (Auto) 0.0 pO2 16 L VBG pH 7.37 VBG pCO2 58 VBG HCO3 27.8 VBG Total CO2 35.3 H VBG O2 Sat (Calc) 28.5 L VBG Base Excess 6.4 H VBG Potassium 5.2 Glucose 106 Lactate 1.7 FiO2 21.0 Sodium 140 138.0 Potassium 5.2 H Chloride 102 102.0 Carbon Dioxide 31 H Anion Gap 12 BUN 11 Creatinine 0.8 Est GFR ( Amer) > 60 Est GFR (Non-Af Amer) > 60 Random Glucose 108 Calcium 8.8 Total Bilirubin 1.9 H AST 42 ALT < 6 L D Alkaline Phosphatase 108 Troponin I 0.0120 NT-Pro-B Natriuret Pep 800 Total Protein 8.8 H Albumin 3.7 Globulin 5.1 H Albumin/Globulin Ratio 0.7 L Venous Blood Potassium 5.2 Urine Color Urine Clarity Urine pH Ur Specific [place] Urine Protein Urine Glucose (UA) Urine Ketones Urine Blood Urine Nitrate Urine Bilirubin Urine Urobilinogen Ur Leukocyte Esterase Urine RBC (Auto) Urine Microscopic WBC Ur Squamous Epith Cells Hyaline Casts 06/18/17 13:20 WBC RBC Hgb Hct MCV MCH MCHC RDW Plt Count MPV Neut % (Auto) Lymph % (Auto) [place] % (Auto) Eos % (Auto) Baso % (Auto) Neut # (Auto) Lymph # (Auto) [place] # (Auto) Eos # (Auto) Baso # (Auto) pO2 VBG pH VBG pCO2 VBG HCO3 VBG Total CO2 VBG O2 Sat (Calc) VBG Base Excess VBG Potassium Glucose Lactate FiO2 Sodium Potassium Chloride Carbon Dioxide Anion Gap BUN Creatinine Est GFR ( Amer) Est GFR (Non-Af Amer) Random Glucose Calcium Total Bilirubin AST ALT Alkaline Phosphatase Troponin I NT-Pro-B Natriuret Pep Total Protein Albumin Globulin Albumin/Globulin Ratio Venous Blood Potassium Urine Color Yellow Urine Clarity Clear Urine pH 7.0 Ur Specific [place] 1.018 Urine Protein 30 Urine Glucose (UA) Neg Urine Ketones Trace Urine Blood Negative Urine Nitrate Negative Urine Bilirubin Negative Urine Urobilinogen 4.0 Ur Leukocyte Esterase Neg Urine RBC (Auto) 3 Urine Microscopic WBC < 1 Ur Squamous Epith Cells < 1 Hyaline Casts 0-2 - EKG Data EKG comments: Normal sinus rhythm Normal ECG - Imaging and Cardiology CT lumbar Additional comment: PROCEDURE: CT scan lumbar spine 06/18/2017 HISTORY: Back pain. Rule out fracture. COMPARISON: Correlation made with CT scan of the abdomen and pelvis dated 02/23/2014 which image the lumbar spine in 3 planes. TECHNIQUE: Contiguous helical/transaxial computed tomography images were obtained of the lumbar spine without the use of intravenous contrast. Coronal and sagittal reformatted images were created and reviewed. Radiation dose: Total exam DLP = 3658.78 mGy-cm. This CT exam was performed using one or more of the following dose reduction techniques: Automated exposure control, adjustment of the mA and/or kV according to patient size, and/or use of iterative reconstruction technique. FINDINGS: VERTEBRAE: The current study reveals fairly exuberant multilevel biconcave -fish-mouth endplate deformities involving the L5 through the T10 segments. The no acute compression fractures are identified. The vertebral bodies exhibit normal alignment. Facets also normally aligned. DISCS/SPINAL CANAL/NEURAL FORAMINA: L1-2: Disc space height maintained. No disc herniation or significant disc bulge. Thinning intradiscal calcifications. Central canal and exit foramina adequate. . L2-3: Disc space height maintained. Intradiscal calcification. No disc herniation or significant disc bulge. Facets are mildly hypertrophic. Central canal and exit foramina are also adequate. L3-4: Disc space height maintained. No disc herniation or significant disc bulge. Facet joints are mildly hypertrophic. Central canal and exit foramina adequate. . L4-5: Disc space height maintained. No disc herniation or significant disc bulge. Small amount of intradiscal calcification and vacuum disc phenomena present. Facet joints are mild to moderately hypertrophic. Central canal and exit foramina adequate. L5-S1: Disc space height relatively maintained No disc herniation or significant disc bulge. Mild intradiscal calcification Facet joints are mild-to- moderately hypertrophic. . Central canal is quite capacious. Exit foramina appear adequate. PARASPINAL SOFT TISSUES: Paraspinal soft tissues unremarkable. OTHER FINDINGS: Re- demonstrated is a endovascular stent graft within the distal abdominal aorta extending into the both iliac arteries. . 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 Mild chronic appearing pleural thickening and parenchymal scarring/atelectasis right lung base. The the the there is also small hiatal hernia with wall thickening of the distal esophagus likely due to protrusion of gastric mucosa. Possibility of esophagitis not excluded. Clinical correlation recommended. IMPRESSION: No acute compression fractures. Re- demonstrated are fairly significant multilevel by concave -fish-mouth endplate deformities of the L5 through the T10 segments. No disc herniations nor significant disc bulges. Facet joints do appear mildly hypertrophic. Central canal and exit foramina appear adequate throughout. In situ endovascular stent graft with 2 localized aneurysmal dilatations, both of which are located above the level of the proximal margin of the endovascular stent graft donor. See above discussion for additional details. CT Abd/Pelvis Additional comment: HISTORY: Abdominal pain. COMPARISON: Comparison made with CT scan of the abdomen and pelvis dated 02/23/2014. TECHNIQUE: Contiguous helical/transaxial images of the abdomen and pelvis performed of following intravenous injection of approximately 95 cc Omnipaque 300 contrast material. . Coronal and Sagittal reformats generated. Radiation dose: Total exam DLP = This CT exam was performed using one or more of the following dose reduction techniques: Automated exposure control, adjustment of the mA and/or kV according to patient size, and/or use of iterative reconstruction technique. FINDINGS: LOWER THORAX: Unremarkable. No acute parenchymal there appears to be at localized of pleural thickening posterior sulcus with chronic appearing atelectasis and or scarring. The underlying chronic interstitial changes are also felt to be present both low lower lung álvarez. No effusion or basilar pneumothorax. Questionable slight shift of the mediastinum from left to right. There is a small hiatal hernia with wall thickening of the distal esophagus that could be due to protrusion of gastric mucosa. Possibility of esophagitis not excluded. LIVER: Unremarkable. No gross lesion or ductal dilatation. Liver exhibits normal size measuring approximately 16 cm in CC dimension. Mild diffuse fatty hepatic infiltration. No definitive hepatic mass collection or calcification. Portal and splenic veins are opacified GALLBLADDER AND BILE DUCTS: The gallbladder has been surgically resected with metallic clips gallbladder fossa. PANCREAS: The pancreas appears somewhat atrophic and fatty replaced. No obvious pancreatic masses or collections. SPLEEN: Spleen is enlarged measuring approximately 15 cm in greatest dimension. No splenic masses or collections identified. ADRENALS: Unremarkable. No adrenal lesions. KIDNEYS AND URETERS: Kidneys demonstrate symmetric nephrograms. No evidence of nephrolithiasis or hydronephrosis. There is a tiny approximately 3.6 mm low-attenuation focus along the medial cortex upper pole left kidney that may represent tiny cortical cyst. Renal ultrasound followup could be performed to confirm. BLADDER: The urinary bladder is physiologically distended. No evidence of intraluminal urinary bladder calculi. . REPRODUCTIVE: Prostate gland measures approximately 4.0 cm in transverse dimension. Prostatic calcifications are present APPENDIX: Normal-appearing appendix best seen on axial image number [id number] 126. BOWEL: Evaluation of the bowel is limited due to the lack of oral contrast material. The stomach is relatively collapsed. Visualized loops of small bowel exhibit normal contour and caliber . Note made of multiple nondistended air-filled loops of small bowel in the pelvis. No evidence of acute mechanical small bowel obstruction. Large amount of stool is seen within the cecum and ascending colon with moderately large amount of air in the remaining large bowel with relative collapse of the at distal sigmoid and rectum. PERITONEUM: Unremarkable. No fluid collection. No free air. Small fat containing bilateral inguinal hernias are present right slightly larger than left. There is also a small to medium sized fat containing umbilical hernia. LYMPH NODES: Unremarkable. No enlarged lymph nodes. VASCULATURE: Re- demonstrated is a endovascular stent graft within the distal abdominal aorta extending into the both iliac arteries. . 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 BONES: Re- demonstrated arm multilevel by concave -fish-mouth endplate deformities involving the lower thoracic and lumbar spine as detailed concurrent CT scan of the lumbar spine and corresponding report. OTHER FINDINGS: None. IMPRESSION: Chronic pleural thickening and atelectasis/scarring right lung base with what appears represent underlying interstitial fibrosis. Mild fatty hepatic infiltration. Status post cholecystectomy. Splenomegaly. Findings consistent with localized fecal retention/ constipation within the cecum and ascending colon with moderately distended air-filled transverse and proximal descending colon. No evidence to suggest obstruction however. endovascular stent graft within the distal abdominal aorta extending into the both iliac arteries. . 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 See above discussion for additional details and findings [ Reading ] [ Conclusion ] Assessment & Plan (1) Intractable back pain Status: Acute (2) Aortic aneurysm Status: Acute (3) Lilibeth infection of genital region Status: Acute (4) HTN (hypertension) Status: Acute (5) Primary osteoarthritis of right knee Status: Chronic (6) COPD (chronic obstructive pulmonary disease) Assessment and Plan: Pulmonary Fibrosis Status: Acute (7) Gait abnormality Status: Acute - Assessment and Plan (Free Text) Assessment: 77 year old male with hx of COPD and endovascular stent graft for abdominal aneurysm admitted for back pain Plan: morphine for pain CT results noted pt refused vascular consult hydrate repeat blood work
[2017-06-19 08:18] LABS: MEAN CELL VOLUME 93.3 fl (80.0-94.0); MEAN CORPUSCULAR HEMOGLOBIN 30.5 pg (27.0-31.0); MEAN CORPUSCULAR HGB CONC 32.7 g/dL (33.0-37.0); RBC 4.28 Mil/uL (4.40-5.90); RED CELL DISTRIBUTION WIDTH 15.7 % (11.5-14.5)
[2017-06-19 08:26] LABS: ALB/GLOB RATIO 0.7 (1.0-2.1); ALBUMIN 3.1 g/dL (3.5-5.0); ALT/SGPT 23 U/L (21-72); AST/SGOT 22 U/L (17-59); BLOOD UREA NITROGEN 11 mg/dl (9-20); CALCIUM 8.5 mg/dL (8.4-10.2); GFR AFRICAN-AMERICAN > 60; GFR NON-AFRICAN AMERICAN > 60
[2017-06-19] MEDS ORDERED: Enoxaparin 40 mg Syringe SC SCH (09:00)
--- NOTE | 2017-06-19 10:24 | RAD ---
PROCEDURE: CHEST RADIOGRAPH, 1 VIEW HISTORY: COUGH COMPARISON: 02/14/2017 FINDINGS: LUNGS: Examination limited due to steep Luis Angel oblique positioning. No infiltrate. PLEURA: No pneumothorax or pleural fluid seen. CARDIOVASCULAR: Normal. OSSEOUS STRUCTURES: No significant abnormalities. VISUALIZED UPPER ABDOMEN: Normal. OTHER FINDINGS: None. IMPRESSION: Normal limited examination.
--- NOTE | 2017-06-19 10:50 | CARD ---
APPROVED REPORT EKG Measurement Heart [id number] <Conclusion> Normal sinus rhythm Normal ECG
[2017-06-19 16:57] VITALS: O2SAT 93
--- NOTE | 2017-06-19 17:07 | CP.PCM.DIS ---
Provider - Provider Date of Admission: 06/18/17 19:26 Attending physician: Laurel Merlos MD Time Spent in preparation of Discharge (in minutes): 25 Diagnosis - Discharge Diagnosis (1) Back pain Status: Acute Hospital Course - Lab Results Lab Results: Micro Results 06/18/17 13:20 Blood Blood Culture - Preliminary NO GROWTH AFTER 24 HOURS 06/18/17 13:01 Blood Blood Culture - Preliminary NO GROWTH AFTER 24 HOURS 06/18/17 13:20 Urine Urine Culture - Final No Growth (<1,000 CFU/ML) Most Recent Lab Values WBC 6.0 K/uL (4.8-10.8) 06/19/17 05:50 RBC 4.28 Mil/uL (4.40-5.90) L 06/19/17 05:50 Hgb 13.0 g/dL (12.0-18.0) 06/19/17 05:50 Hct 39.9 % (35.0-51.0) 06/19/17 05:50 MCV 93.3 fl (80.0-94.0) 06/19/17 05:50 MCH 30.5 pg (27.0-31.0) 06/19/17 05:50 MCHC 32.7 g/dL (33.0-37.0) L 06/19/17 05:50 RDW 15.7 % (11.5-14.5) H 06/19/17 05:50 Plt Count 114 K/uL (130-400) L 06/19/17 05:50 MPV 8.3 fl (7.2-11.7) 06/18/17 13:09 Neut % (Auto) 78.8 % (50.0-75.0) H 06/18/17 13:09 Lymph % (Auto) 11.8 % (20.0-40.0) L 06/18/17 13:09 [place] % (Auto) 7.0 % (0.0-10.0) 06/18/17 13:09 Eos % (Auto) 1.8 % (0.0-4.0) 06/18/17 13:09 Baso % (Auto) 0.6 % (0.0-2.0) 06/18/17 13:09 Neut # (Auto) 5.8 K/uL (1.8-7.0) 06/18/17 13:09 Lymph # (Auto) 0.9 K/uL (1.0-4.3) L 06/18/17 13:09 [place] # (Auto) 0.5 K/uL (0.0-0.8) 06/18/17 13:09 Eos # (Auto) 0.1 K/uL (0.0-0.7) 06/18/17 13:09 Baso # (Auto) 0.0 K/uL (0.0-0.2) 06/18/17 13:09 pO2 16 mm/Hg (30-55) L 06/18/17 13:15 VBG pH 7.37 (7.32-7.43) 06/18/17 13:15 VBG pCO2 58 mmHg (40-60) 06/18/17 13:15 VBG HCO3 27.8 mmol/L 06/18/17 13:15 VBG Total CO2 35.3 mmol/L (22-28) H 06/18/17 13:15 VBG O2 Sat (Calc) 28.5 % (40-65) L 06/18/17 13:15 VBG Base Excess 6.4 mmol/L (0.0-2.0) H 06/18/17 13:15 VBG Potassium 5.2 mmol/L (3.6-5.2) 06/18/17 13:15 Sodium 138.0 mmol/L (132-148) 06/18/17 13:15 Chloride 102.0 mmol/L (98-107) 06/18/17 13:15 Glucose 106 mg/dL (75-110) 06/18/17 13:15 Lactate 1.7 mmol/L (0.7-2.1) 06/18/17 13:15 FiO2 21.0 % 06/18/17 13:15 Sodium 139 mmol/l (132-148) 06/19/17 05:50 Potassium 4.5 MMOL/L (3.6-5.0) 06/19/17 05:50 Chloride 102 mmol/L (98-107) 06/19/17 05:50 Carbon Dioxide 30 mmol/L (22-30) 06/19/17 05:50 Anion Gap 12 (10-20) 06/19/17 05:50 BUN 11 mg/dl (9-20) 06/19/17 05:50 Creatinine 0.9 mg/dl (0.8-1.5) 06/19/17 05:50 Est GFR ( Amer) > 60 06/19/17 05:50 Est GFR (Non-Af Amer) > 60 06/19/17 05:50 Random Glucose 92 mg/dL (75-110) 06/19/17 05:50 Calcium 8.5 mg/dL (8.4-10.2) 06/19/17 05:50 Total Bilirubin 1.3 mg/dl (0.2-1.3) 06/19/17 05:50 AST 22 U/L (17-59) 06/19/17 05:50 ALT 23 U/L (21-72) 06/19/17 05:50 Alkaline Phosphatase 93 U/L (38-126) 06/19/17 05:50 Troponin I 0.0120 ng/mL (0.00-0.120) 06/18/17 13:09 NT-Pro-B Natriuret Pep 800 pg/ml (0-900) 06/18/17 13:09 Total Protein 7.7 G/DL (6.3-8.2) 06/19/17 05:50 Albumin 3.1 g/dL (3.5-5.0) L 06/19/17 05:50 Globulin 4.6 gm/dL (2.2-3.9) H 06/19/17 05:50 Albumin/Globulin Ratio 0.7 (1.0-2.1) L 06/19/17 05:50 TSH 3rd Generation 1.54 mIU/ML (0.46-4.68) 06/19/17 05:50 Venous Blood Potassium 5.2 mmol/L (3.6-5.2) 06/18/17 13:15 Urine Color Yellow (YELLOW) 06/18/17 13:20 Urine Clarity Clear (Clear) 06/18/17 13:20 Urine pH 7.0 (5.0-8.0) 06/18/17 13:20 Ur Specific [place] 1.018 (1.003-1.030) 06/18/17 13:20 Urine Protein 30 mg/dL (NEGATIVE) 06/18/17 13:20 Urine Glucose (UA) Neg mg/dL (Normal) 06/18/17 13:20 Urine Ketones Trace mg/dL (NEGATIVE) 06/18/17 13:20 Urine Blood Negative (NEGATIVE) 06/18/17 13:20 Urine Nitrate Negative (NEGATIVE) 06/18/17 13:20 Urine Bilirubin Negative (NEGATIVE) 06/18/17 13:20 Urine Urobilinogen 4.0 mg/dL (0.2-1.0) 06/18/17 13:20 Ur Leukocyte Esterase Neg [place]/uL (Negative) 06/18/17 13:20 Urine RBC (Auto) 3 /hpf (0-3) 06/18/17 13:20 Urine Microscopic WBC < 1 /hpf (0-5) 06/18/17 13:20 Ur Squamous Epith Cells < 1 /hpf (0-5) 06/18/17 13:20 Hyaline Casts 0-2 /hpf (0-2) 06/18/17 13:20 - Hospital Course Hospital Course: 77 year old male who presented to the ED with complains of back pain and some abdominal pain. Pt was noted to have moderate constipation, refused enema in the ED. The patient had a lumbar CT scan which showed chronic changes with no fractures. The CT of Abd/Pel showed an endovascular stent graft in the distal abdominal aorta. The patient refused vascular consult. The patient was hydrated and discharged home with pain medications for outpatient follow up. Discharge Plan - Discharge Medications Prescriptions: Nystatin 1 each MC BID 14 Days powder.ea. oxyCODONE/Acetaminophen [Percocet 5/325 mg Tab] 1 ea PO Q6 #5 tab - Follow Up Plan Condition: FAIR Disposition: HOME/ ROUTINE Instructions: Acute Low Back Pain (DC) Additional Instructions: follow up with primary MD 7-10 days Referrals: Laurel Merlos MD [Family Provider] -
[2017-06-20 08:30] VITALS: BP 139/83; PULSE 104; TEMP 98.5
== END 2017-06-20 10:42 | disposition home or self-care (01) ==
LOC: H.ER 11:35 → H.ERHOLD 19:26 → H.MEDSURG1 21:25
PROVIDERS: ADMIT Internal Medicine; ATTEND Internal Medicine
DX: M54.89 Other dorsalgia (principal); B37.49 Other urogenital candidiasis; I10 Essential (primary) hypertension; J44.9 Chronic obstructive pulmonary disease, unspecified; J84.10 Pulmonary fibrosis, unspecified; I71.9 Aortic aneurysm of unspecified site, without rupture; M17.11 Unilateral primary osteoarthritis, right knee; F17.210 Nicotine dependence, cigarettes, uncomplicated; Z87.01 Personal history of pneumonia (recurrent)
CPT/HCPCS: 36415; 71045; 72131; 74177; 80053; 81003; 82803; 83880; 84443; 84484; 85025; 85027; 87040; 87086; 93005; 96374; 99285; C9113; G0378; J1885; J2270; Q9967

== ENCOUNTER 2017-06-28 11:28 | Emergency (ER) | payer MEDICARE ==
[2017-06-28 11:38] VITALS: BP 156/79; PULSE 74; RESP 20; TEMP 98; O2SAT 98
--- NOTE | 2017-06-28 12:10 | ED PDOC ---
HPI: Psych/Substance Abuse Time Seen by Provider: 06/28/17 11:46 Chief Complaint (Nursing): Psychiatric Evaluation Chief Complaint (Provider): aggressive History Per: Patient, EMS History/Exam Limitations: no limitations Onset/Duration Of Symptoms: Days (today) Additional Complaint(s): Pt. was making comments on the streets that he had a weapon and that he was a weapon so police called and brought to the ED. Pt. denies any suicidal or homicidal ideation. No numbness, tingles, weakness, headaches, dizziness. No chest pain, abd pain. No injury to self. No drugs or etoh. Past Medical History Reviewed: Nursing Documentation, Vital Signs Vital Signs: Last Vital Signs Temp 98 F 06/28/17 11:35 Pulse 74 06/28/17 11:35 Resp 20 06/28/17 11:35 BP 156/79 H 06/28/17 11:35 Pulse Ox 98 06/28/17 11:35 - Medical History PMH: COPD, Depression, HTN, Pneumonia, Seizures, Chronic Pain (and in wheel chair from lower spine issues) Denies: HIV, Chronic Kidney Disease - Surgical History Surgical History: Cholecystectomy - Family History Family History: States: Unknown Family Hx - Home Medications Home Medications: Ambulatory Orders Medication Instructions Recorded Nystatin 1 each MC BID 14 Days powder.ea. 06/19/17 oxyCODONE/Acetaminophen [Percocet 1 ea PO Q6 #5 tab 06/19/17 5/325 mg Tab] - Allergies Allergies/Adverse Reactions: Allergies Allergy/AdvReac Type Severity Reaction Status Date / Time No Known Allergies Allergy Verified 06/28/17 11:34 Review of Systems ROS Statement: Except As Marked, All Systems Reviewed And Found Negative Physical Exam - Reviewed Nursing Documentation Reviewed: Yes - Physical Exam Appears: Positive for: Well, Non-toxic, No Acute Distress Head Exam: Positive for: ATRAUMATIC, NORMAL INSPECTION, NORMOCEPHALIC Eye Exam: Positive for: EOMI, Normal appearance, PERRL Neck: Positive for: Normal, Painless ROM Cardiovascular/Chest: Positive for: Regular Rate, Rhythm Respiratory: Positive for: CNT, Normal Breath Sounds Back: Positive for: Normal Inspection. Negative for: L CVA Tenderness, R CVA Tenderness Extremity: Positive for: Other (limited ROM due to pain in the back (chronic)). 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 Does not meet criteria for admit. Fu with pcp. AAOx3. Police with pt. Disposition - Clinical Impression Clinical Impression: Dementia - Patient ED Disposition Is Patient to be Admitted: No Counseled Patient/Family Regarding: Diagnosis, Need For Followup - Disposition Referrals: [facility] [Outside] - 06/29/17 Disposition: Routine/Home Disposition Time: 12:15 Condition: STABLE Additional Instructions: You are medically and psychiatrically cleared for incarceration. Return if not better in 3 days. Instructions: Dementia (Including Alzheimer Disease)
== END 2017-06-28 12:47 | disposition home or self-care (01) ==
LOC: H.ER 11:28
DX: F03.90 Unspecified dementia, unspecified severity, without behavioral disturbance, psychotic disturbance, mood disturbance, and anxiety (principal); F32.9 Major depressive disorder, single episode, unspecified; G89.29 Other chronic pain; I10 Essential (primary) hypertension; J44.9 Chronic obstructive pulmonary disease, unspecified